=== PATIENT | female | born 1940 | race Caucasian/White ===

== ENCOUNTER 2017-04-14 10:45 | Inpatient (IN) ==
--- NOTE | 2017-04-14 12:38 | Diag Imaging Result Doc PS360 ---
CT HEAD W/O CONTRAST - 04/14/2017 INDICATION: TIA/Hypotension TECHNIQUE: A CT dose reduction protocol was used. COMPARISON: None FINDINGS: The ventricles and sulci are normal in size and contour. No intracranial mass or hemorrhage. There is some moderate multifocal cerebral white matter hypodensity, mainly the periventricular and scattered subcortical regions. This is compatible with chronic microvascular ischemia. The skull is intact. The sinuses, mastoids, and middle ears are clear. There is advanced vascular calcification of the carotid siphons bilaterally. IMPRESSION: Chronic ischemic changes of the brain. No acute abnormality. Electronically signed by Felipe Kasper 04/14/2017 12:36 PM
--- NOTE | 2017-04-14 12:50 | Diag Imaging Result Doc PS360 ---
CHEST-2 VIEWS - 04/14/2017 INDICATION: TIA/Hypotension TECHNIQUE: COMPARISON: 01/14/2016 FINDINGS: Stable sternotomy changes. Stable cardiomegaly. Pulmonary vascularity is normal. No focal infiltrates, pneumothorax, or pleural effusion. IMPRESSION: Mild cardiomegaly. No acute disease. Electronically signed by Felipe Kasper 04/14/2017 12:48 PM
[2017-04-14 13:53] LABS: EOS% 3.2 % (0.0-10.0); HEMOGLOBIN 10.2 g/dL (12.0-16.0); IMM GRAN# 0.05 X1000 (0.0-0.04); IMM GRAN% 0.5 % (0.0-0.5); LYMPH% 22.6 % (20.5-51.1); MANUAL DIFF NEEDED? NO; MCH 30.4 PG (27-31); MCHC 31.9 g/dL (33-37); MCV 95.5 FL (81-99); MONO# 0.72 X1000 (0.11-0.59); MONO% 7.7 % (1.7-9.3); MPV 11.9 FL (7.4-10.4); PLT 198 X1000 (130-400); RBC 3.35 XMIL (4.2-5.4)
[2017-04-14] MEDS: POTASSIUM CHLORIDE 10 MEQ in D5 NS 1,000 ML IV SCH (14:00)
[2017-04-14 14:11] LABS: ALBUMIN 3.7 g/dL (3.5-5.0); CALCIUM 9.1 mg/dL (8.8-10.2); TOTAL BILIRUBIN 0.25 mg/dL (0.20-1.00); TOTAL PROTEIN 6.2 g/dL (6.3-8.3)
--- NOTE | 2017-04-14 15:25 | EKG Report ---
Test Performed on : 04/14/2017 1:29:21 PM Test Reason : TIA/Hypotension Blood Pressure : / mmHG Vent. Rate : 069 BPM Atrial Rate : 069 BPM P-R Int : 178 ms QRS Dur : 096 ms QT Int : 424 ms P-R-T Axes : 050 -16 125 degrees QTc Int : 454 ms Normal sinus rhythm. T wave abnormality, consider lateral ischemia Abnormal ECG When compared with ECG of 16-JAN-2015 13:27, T wave inversion now evident in Lateral leads Confirmed by Narinder Cosme MD ([id number]) on 04/15/2017 8:23:35 PM
[2017-04-14] MEDS ORDERED: ZOFRAN PO PRN (17:38)
[2017-04-14] MEDS ORDERED: CATAPRES PO PRN (17:38)
[2017-04-14] MEDS ORDERED: TYLENOL PO PRN (17:38)
--- NOTE | 2017-04-14 18:05 | HISTORY AND PHYSICAL ---
HISTORY OF PRESENT ILLNESS: Ms. Pate who is a 77-year-old white female had a cataract surgery performed on the left eye a week ago the right eye 3 days ago. She had some pain in the eye and some slurring of speech yesterday and she came to the emergency room from where she was sent home because she wanted to go home and her physical exam was unremarkable. This morning she went to the applications developer who found that she was hypotensive and she was somewhat weak and he suggested that she sees the primary care physician and he saw her, she could not even get out of the car and she had some weakness in the right arm and we decided to put her in the hospital. Other details of personal past and family history reveal longstanding history of hypertension as well as renal failure. She had coronary artery disease and 4 vessel bypass surgery performed at [facility] in [place]. She also had hysterectomy and cataract surgery as mentioned. She does peritoneal dialysis at home at least 2 times a week. She is under acute care of Dr. Palencia for her renal problems. PERSONAL PAST AND FAMILY HISTORY: She does not smoke. Does not drink now. ALLERGIES: She is allergic to hydrocodone now but had bitartrate. MEDICATIONS: List includes allopurinol 100 mg daily, aspirin 81 mg daily, benzonatate, 30 mg, clonidine 0.1 mg every 6 hours, vitamin B complex, Renvela 800 mg t.i.d., Zofran q.6 hours p.r.n., omeprazole 20 mg daily, metoprolol succinate ER 50 mg once daily, metoclopramide 5 mg t.i.d., fluticasone or Advair 100-50 one puff b.i.d., Nexium 40 mg daily. REVIEW OF SYSTEMS: Other than generalized weakness, weakness in the right arm and slight stuttering of speech is noncontributory. PHYSICAL EXAMINATION: VITAL SIGNS: Reveal that temperature normal, pulse 71 per minute, respiratory rate 20 per minute, blood pressure 157/67. HEENT: Head normocephalic. Pupils PERRLA. Fundus examination could not be done. The patient recently had bilateral cataract surgery. Neck supple. JVP normal. ENT examination unremarkable. There is no evidence of lymphadenopathy, thyroid enlargement, pedal edema, calf tenderness, anemia, cyanosis or clubbing. Pedal pulses well felt. BREASTS: Exam not done. CHEST: Reveals midline scar from the bypass surgery. LUNGS: Clear on auscultation. PMI in the normal position. HEART: Sounds normal. No murmur, gallop or rub noted. ABDOMEN: Nondistended. Hernial orifices normal, reveals the scars for peritoneal dialysis and hysterectomy. No guarding, rigidity, free fluid masses, organomegaly. Bowel sounds normal. RECTAL: Deferred. ROUND UP RING HAND: Higher functions normal. Cranial nerves normal. 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 Deep tendon reflexes are normal. Plantars downgoing. Skull and spine examination normal for age. No cerebellar signs or signs of meningeal irritation. Locomotor exam, skin exam unremarkable except for presence of mild dehydration. CLINICAL IMPRESSION: 1. Hypotension. 2. Dehydration. 3. Patient had transient ischemic attack. 4. Renal failure. 5. Coronary artery disease. 6. She has history of gout also in the past. We will send continue to watch her closely. Do the neuro checks. Get the CT scan, carotid flow studies, possibly echocardiogram tomorrow. cc: Radu Whitehead MD
[2017-04-14] MEDS: ADVAIR 100/50 DISKUS INH SCH (19:32)
[2017-04-14] MEDS: VYTORIN 10/20 MG PO SCH (21:14)
[2017-04-15] MEDS: POTASSIUM CHLORIDE 10 MEQ in D5 NS 1,000 ML IV SCH ×2 (01:25→15:09)
[2017-04-15] MEDS: REGLAN PO SCH ×3 (06:05→16:15)
[2017-04-15 07:15] LABS: CALCIUM 8.7 mg/dL (8.8-10.2); POTASSIUM 4.7 mmol/L (3.5-5.1)
[2017-04-15] MEDS: ADVAIR 100/50 DISKUS INH SCH ×2 (09:28→19:42)
--- NOTE | 2017-04-15 09:34 | PROGRESS NOTE ---
DATE: 04/15/2017 SUBJECTIVE: Ms. Pate is feeling better this morning. OBJECTIVE: Vital Signs: Vital signs are stable. Blood pressure is down. She does not have any weakness. Her lab work is almost unchanged. She had peritoneal dialysis. She has some right internal carotid disease and right subclavian disease. Dr. Anthony is consulted. We will go further after his suggestions and she had echocardiogram done today. We will continue to watch her closely. cc: Radu Whitehead MD
[2017-04-15] MEDS: ASPIRIN PO SCH (09:35)
[2017-04-15] MEDS: ZYLOPRIM PO SCH (09:35)
[2017-04-15] MEDS: SENSIPAR PO SCH (09:35)
[2017-04-15] MEDS: RENAGEL PO SCH ×3 (09:35→16:15)
[2017-04-15] MEDS: TOPROL XL PO SCH (09:35)
[2017-04-15] MEDS: NEXIUM PO SCH (09:35)
[2017-04-15] MEDS: VICON-C PO SCH (09:36)
[2017-04-15] MEDS ORDERED: EPOGEN SUBQ ONE (10:45)
--- NOTE | 2017-04-15 11:17 | Carotid Study ---
DATE: 04/14/2017 PROCEDURE: Bilateral duplex and color flow imaging of the carotid arteries was performed using the [employer] E9 ultrasound system with a 9L-D transducer. REFERRING PHYSICIAN: Radu Whitehead MD. INTERPRETING PHYSICIAN: Troy Newsome MD. TECH: [place]. INDICATIONS: TIA. OBSERVED DATA RIGHT LEFT Brachial Blood Pressure Carotid Pulse Bruits: Carotid/Sub DIAGRAM OF ULTRASOUND IMAGING R L RIGHT INT EXT INT EXT LEFT Osorio (cm/s) Osorio (cm/s) Subclavian 99/0 Subclavian 42/0 CCA Proximal 68/23 CCA Proximal 59/18 CCA Distal 63/25 CCA Distal 47/11 Bulb 63/22 Bulb 48/15 ICA Proximal 327/119 ICA Proximal 63/23 ICA Mid 187/68 ICA Mid 67/20 ICA Distal 152/53 ICA Distal 38/15 ECA 556/146 ECA 76/7 Vertebral 63/25 A Vertebral 26/19 A ICA/CCA Ratio 4.84 ICA/CCA Ratio 1.13 % Stenosis 80-99 % Stenosis 0-39 FINDINGS: There appears to be critical stenosis on the right side at the level of the carotid bulb. There also appears to be abnormal flow in the left subclavian and vertebral artery on the left side, but by strict velocity criteria the left side is normal to mild. INTERPRETATION: Critical stenosis on the right carotid system with abnormal flow noted in the left subclavian and the left vertebral artery but a normal to mild stenosis on the left, although this may be limited by the abnormal flow in the subclavian. Given this, I would recommend a CT angiography to better delineate this pathology. Per avionics systems technician's note, this was noted to Dr. Whitehead at 5 p.m. cc: MD Radu Daniel MD
--- NOTE | 2017-04-15 15:48 | CONSULTATION ---
DATE OF CONSULTATION: 04/15/2017 NEPHROLOGY CONSULTATION: REASON FOR CONSULTATION: Management of renal failure. HISTORY OF PRESENT ILLNESS: Ms. Pate is a 77-year-old white female with obesity , diabetes, hypertension, coronary artery disease. She has end-stage kidney disease and performs peritoneal dialysis using nighttime cycler. She had cataract surgery consecutively over the last 2 weeks. She had her last surgery on Thursday 2 days ago. This was complicated by hypotension weakness and confusion. The family relates however that she has been weak, especially in the right arm, and somewhat confused for several days. Because her symptoms were not improving she was taken to Dr. Whitehead's office and then subsequently admitted to the hospital. This morning, she denies all symptoms and states that she is ready to go home. However her answers are somewhat slow and confused and conflicted. She has not had any problems with her dialysis. PAST MEDICAL HISTORY: As above. HOME MEDICATIONS: Include: Allopurinol, aspirin, benzonatate, clonidine, vitamin B, Renvela, Zofran, omeprazole, metoprolol, metoclopramide, fluticasone, Advair, Nexium. ALLERGIES: Hydrocodone. SOCIAL HISTORY: She lives alone but she has a very supportive family. Daughter is present. No alcohol or tobacco. FAMILY HISTORY: Noncontributory. REVIEW OF SYSTEMS: Otherwise noncontributory. PHYSICAL EXAMINATION: Vital Signs: Blood pressure 119/54, heart rate 72, respirations 14, afebrile. General: She is an obese, white female, sitting erect, in no distress. Skin: Warm and dry. Conjunctivae are pink. Pupils are equal. Neck: Neck veins are not distended. Oropharynx is clear and moist. Heart: Regular without gallops or murmurs. Lungs: Have equal breath sounds. No crackles or wheezes. Abdomen: Obese and soft. Bowel sounds present. No organomegaly. Extremities: No edema, clubbing or cyanosis. Neurologic Exam: Grossly nonfocal except for her and decreased attention span and intermittent confusion. IMPRESSION: 1. End-stage kidney disease. We will continue her routine peritoneal dialysis prescription. She is on PD currently. Electrolytes, acid-base and volume status are all within target. 2. Anemia. We will check iron stores, B12, and folate. Replace as needed. We will give 1 dose of erythropoietin. 3. Hypertension. Within target. 4. Confusion. Discussed directly with Dr. Whitehead. We will have Dr. Anthony review her vascular studies. cc: MD Radu Lucas MD MTDD
--- NOTE | 2017-04-15 18:22 | CONSULTATION ---
DATE OF CONSULTATION: 04/15/2017 CHIEF COMPLAINT: Right carotid stenosis. HISTORY: This is a 77-year-old lady admitted by Dr. Whitehead on the 04/14. She was admitted after being evaluated by her web knitter. Ms. Paet simply says she could not function. That was her words. She could not function. Her daughter states she has been having trouble saying things that she wants to say. Ms. Pate admits to that, knows what she wants to say, but she cannot say it necessarily. She denies any stroke symptoms. PAST MEDICAL HISTORY: Pertinent for chronic kidney disease, for which she dialyzes via her peritoneum. She has a history of coronary artery disease and has had coronary bypass at [facility] in the past. She denies any current chest pain. She has a history of gout in the past. MEDICATIONS AT HOME: Allopurinol 100 mg daily, aspirin 81 mg daily, clonidine 0.1 mg every 6 hours, vitamin B complex daily, Renvela 800 mg t.i.d., Zofran q.6 hours p.r.n., omeprazole 20 mg daily, metoprolol 50 mg daily, metoclopramide 5 mg t.i.d., fluticasone 100/50, 1 puff b.i.d., Nexium 40 mg daily. ALLERGIES: She has an allergy or intolerance to hydrocodone. FAMILY HISTORY: Noncontributory. SOCIAL HISTORY: She denies smoking. She denies alcohol use. She has an attentive family. REVIEW OF SYSTEMS: Pertinent for some generalized weakness, but no lateralizing weakness that she describes today. She has had the difficulty speaking. No chest pain. Denies any shortness of breath. PHYSICAL EXAMINATION: Vital Signs: Temperature is 99.1 degrees, heart rate 67, respiratory rate 14, blood pressure 150/54. There are bilateral radiating murmurs to the neck. Bilateral breath sounds. Heart: Regular rate and rhythm. A murmur is noted. Abdomen: Soft and nontender. Extremities: No peripheral edema. Neurologic: She has +5 over +5 strength in all 4 extremities. DIAGNOSTIC DATA: Chemistry shows a BUN 43, creatinine 9.2. Right carotid Doppler shows a very high-grade stenosis on her right side with irregular plaque. The proximal ICA velocity is 327/119 consistent with at least an 80% stenosis. The left side velocities are not high. There is some plaque present. There is antegrade vertebral flow. ASSESSMENT: Dysarthria. It really does not correlate with a right carotid stenosis. It might be helpful to get a CT angiogram of the neck to further evaluate her disease. I do think she is going to face the need for right carotid endarterectomy at some point in the near future. I have discussed that briefly with her. Thanks for the opportunity to see her. I would continue with antiplatelet therapy. cc: MD Radu Martin MD
--- NOTE | 2017-04-15 21:04 | ECHO REPORT ---
ORDER DATE: 04/15/2017 INTERPRETING PHYSICIAN: Dr. Ocampo REQUESTING PHYSICIAN: Dr. Whitehead CLINICAL INDICATIONS: A 77-year-old female with hypotension, dehydration. M-MODE MEASUREMENTS: Right ventricle: 2.8 cm. Left ventricle end diastole: 4.9 cm. Left ventricle end systole: 3.7 cm. Posterior wall: 1.3 cm. Interventricular septum: 1.3 cm. Left atrium: 4.7 cm. Aortic root: 3.3 cm. SUMMARY OF 2-DIMENSIONAL IMAGING: The left ventricular chamber appears to be significantly enlarged. The global ejection fraction appears to be preserved at 55%. There is wall motion abnormality in the posterior wall, basal and midportion of it. That may be consistent with the patient's history of coronary heart disease. The mitral annulus shows dense calcification. Color flow mapping of the mitral valve indicates a moderately severe degree of mitral regurgitation. Pulse wave Doppler of mitral inflow shows "normal" E/A ratio. Tissue Doppler of septal and lateral mitral annulus averages 4 cm per second. There is elevation of left atrial pressure based on the E/E prime ratio. The aortic valve is densely calcified, especially the posterior leaflet shows dense calcification. Color flow mapping indicates a moderate degree of aortic regurgitation. The pulmonic valve looks normal with a [id number] degree of regurgitation. The tricuspid valve shows a moderate degree of regurgitation with a pulmonary pressure estimated roughly at 54 mmHg. There is no pericardial effusion, masses or thrombus. Clinical correlation recommended. cc: MD Radu Lacy MD
[2017-04-15] MEDS: VYTORIN 10/20 MG PO SCH (21:56)
[2017-04-16 05:00] LABS: ALLEN TEST YES; BE -3.4 mmoll (-3.0-3.0); BLOOD TYPE ARTERIAL; DRAW SITE R RADIAL; METHB 0.2 % (0.0-1.5); O2(CT) 14.5 mL/dL (15.0-23.0); PCO2(98.6) 36 mmHg (35-45); PO2(98.6) 70 mmHg (60-100); SAMPLE BLOOD; SAO2 94.2 % (95.0-100.0); THB 10.9 g/dL (11.5-17.4); pH(98.6) 7.38 (7.35-7.45)
[2017-04-16 05:05] LABS: MODALITY ROOM AIR
[2017-04-16 08:14] LABS: IRON SATURATION 29 %; TIBC 196 ug/dL; TOTAL IRON 56 ug/dL (49-151); UNBOUND IRON 140 ug/dL (112-346)
[2017-04-16 08:23] LABS: FERRITIN 1328 ng/mL (13-150)
--- NOTE | 2017-04-16 08:27 | Diag Imaging Result Doc PS360 ---
EXAM: CHEST-1 VIEW HISTORY: SOB TECHNIQUE: Portable upright AP COMPARISON: 04/14/2017 FINDINGS: Sternal wires are present. The lungs are well expanded. The heart is not enlarged. The vessels are not distended. There are no infiltrates. No effusion identified. IMPRESSION: Negative exam. Electronically signed by Burke Colmenares 04/16/2017 8:25 AM
[2017-04-16] MEDS: ADVAIR 100/50 DISKUS INH SCH ×2 (08:42→20:12)
[2017-04-16] MEDS: RENAGEL PO SCH ×3 (09:32→16:01)
[2017-04-16] MEDS: VICON-C PO SCH (09:32)
[2017-04-16] MEDS: SENSIPAR PO SCH (09:32)
[2017-04-16] MEDS: ZYLOPRIM PO SCH (09:32)
[2017-04-16] MEDS: NEXIUM PO SCH (09:32)
[2017-04-16] MEDS: TOPROL XL PO SCH (09:33)
[2017-04-16] MEDS: ASPIRIN PO SCH (09:33)
[2017-04-16] MEDS: REGLAN PO SCH ×3 (09:33→16:01)
--- NOTE | 2017-04-16 09:53 | PROGRESS NOTE ---
DATE: 04/16/2017 Ms. Pate is doing better. She is talking more this morning. Last night, she was somewhat short of breath, and her ABGs were repeated. They looked normal. Bicarb was 22.2. CBC is unremarkable. She is getting the angiogram today on her carotids. She was seen by Dr. Anthony yesterday. We will re-evaluate her after we get the results. cc: Radu Whitehead MD
--- NOTE | 2017-04-16 10:03 | Diag Imaging Result Doc PS360 ---
CT ANGIOGRAM/NECK - 04/16/2017 INDICATION: TIA; right carotid stenosis TECHNIQUE: Axial CT images were obtained after administering intravenous contrast. Three-dimensional angiographic images were generated. A CT dose reduction protocol was used. COMPARISON: None FINDINGS: There are trace pleural effusions. There is probably interstitial pulmonary edema in the lung apices. There are sternotomy wires. There is heavy vascular disease of the aortic arch. No mass or adenopathy in the neck. There is heavy multilevel degenerative disc disease. No acute bony lesions. On the right side, there is severe stenosis with calcified plaque at the origin of the brachiocephalic artery by about 75%. The common carotid artery is tortuous but patent. There is extensive heavy calcified plaque throughout the carotid bulb and proximal internal carotid artery. There is long segment critical stenosis of about 90% narrowing. The remainder of the internal carotid artery is patent. At the cavernous and supraclinoid portion, there is significant vascular calcification, of the internal carotid artery. There is moderate about 50% stenosis. On the left side, the common carotid artery is grossly patent. There is extremely heavy vascular calcification of the carotid bulb with severe stenosis of about 75%. The remainder of the internal carotid artery is grossly patent. There is heavy stenosis throughout the cavernous and supraclinoid portions of the internal carotid artery. There is about 60% stenosis here. There is essentially no visible flow throughout the right vertebral artery, which is probably reconstituted by collaterals at about the level of the hyoid bone. Cephalad to this, there is a normal caliber vertebral artery. The left vertebral artery is patent throughout its course with good caliber. The basilar artery is patent. IMPRESSION: 1. Extensive vascular disease of both carotid artery systems, right greater than left. This involves the entire system from the brachiocephalic artery origin all the way to the intracranial vessels. By far the worst stenosis is the right carotid bulb. 2. No visible flow throughout the majority of the right proximal vertebral artery, which appears to be reconstituted by collaterals. The left vertebral artery is patent. Electronically signed by Felipe Kasper 04/16/2017 10:01 AM
--- NOTE | 2017-04-16 14:40 | PROGRESS NOTE ---
DATE: 04/16/2017 SUBJECTIVE: Patient is sitting up in bed. She states that she is having worsening shortness of breath this afternoon. OBJECTIVE: Vital Signs: Temperature 97.7 degrees, pulse 80, respiratory rate 20, blood pressure 163/63. Intake 1.2 L. Output 3 L. Her PD was not measured. O2 saturation 97 % on 2 L nasal cannula. General: On exam, this is an elderly female sitting up in bed. She is awake, alert. She has no acute distress. She does become somewhat short of breath during conversation. HEENT: Normocephalic, atraumatic. Oral mucosa is moist. FRITZ. Conjunctivae pink. Neck: Supple. There is no JVD. Cardiovascular: Regular rate and rhythm. No murmur or gallop. Pulmonary: She has equal excursion. There is no wheeze or rhonchi noted, but she is obviously breathless during conversation. Abdomen: Soft, with positive bowel sounds. She has a PD catheter to the right lower quadrant with dressing that is clean, dry and intact. Integumentary: Skin is warm and dry without rash or lesion. Extremities: No clubbing, cyanosis or edema. LABORATORY DATA: No labs today. ASSESSMENT AND PLAN: 1. End-stage renal disease management. Today she is a routine peritoneal dialysis patient. We will continue her on her current treatment. 2.5% dianeal tonight. 2. Hypertension, controlled. 3. Effusion/transient ischemic attack followed by primary. 4. Shortness of breath. We will go ahead and order a chest x-ray this afternoon. Dictated by MARINA Shepard for Stephan Palencia MD Patient seen, data reviewed, discussed with Elisa Upton on 04/16/17. I agree with the above assessment and plan of care. cc: MD Radu Lucas MD MTDD
--- NOTE | 2017-04-16 14:52 | Diag Imaging Result Doc PS360 ---
CHEST-2 VIEWS - 04/16/2017 1445 INDICATION: worsening dyspnea TECHNIQUE: COMPARISON: 0815 FINDINGS: There are increased interstitial markings throughout the lungs and curly B lines that are visible on this improved exam. This suggests pulmonary edema. Stable cardiomegaly. Stable sternotomy changes. No pneumothorax or pleural effusion. IMPRESSION: Cardiomegaly and interstitial pulmonary edema. Electronically signed by Felipe Kasper 04/16/2017 2:50 PM
[2017-04-16] MEDS: FOLIC ACID PO SCH (16:01)
[2017-04-16] MEDS: VYTORIN 10/20 MG PO SCH (22:04)
[2017-04-16] MEDS: REMERON PO SCH (22:04)
[2017-04-17] MEDS: REGLAN PO SCH ×3 (06:17→18:44)
[2017-04-17] MEDS ORDERED: EPOGEN SUBQ ONE (08:43)
--- NOTE | 2017-04-17 08:51 | Diag Imaging Result Doc PS360 ---
EXAM: CHEST-1 VIEW HISTORY: reassess pulmonary edema TECHNIQUE: Single AP view of the chest performed portably. COMPARISON: 04/16/2017 FINDINGS: This evaluation is limited by large body habitus and portable technique. There is cardiomegaly with median sternotomy wires. Interstitial edema may be slightly worse on the right. No focal consolidation or effusions are appreciated. There is stable cardiomegaly. IMPRESSION: Limited portable evaluation. There may be mild increase in interstitial edema right lung. No focal consolidation. Electronically signed by Sylvia Candelario 04/17/2017 8:49 AM
--- NOTE | 2017-04-17 08:57 | PROGRESS NOTE ---
DATE: 04/17/2017 SUBJECTIVE: She has been sleeping for 13 hours according to the son. She has had intermittent arousal. She again states that she is ready to go home. Denies shortness of breath, nausea, vomiting. She still has not eaten. OBJECTIVE: Vital Signs: Blood pressure 177/68, heart rate 80, respirations 16. Afebrile. General: On physical exam, no acute distress. Skin: Warm and dry. Eyes: Conjunctivae are pink. Neck: Neck veins are not appreciated. Heart: Regular. Lungs: Equal and clear. Abdomen: Obese and soft. Bowel sounds present. Extremities: Have no edema, clubbing, or cyanosis. LABORATORY DATA: None today. IMPRESSION: 1. End-stage kidney disease. We will continue her routine dialysis prescription. 2. Altered mental status. Perhaps a little better today. Continue current treatment. 3. Mild pulmonary edema. We increased her Dianeal concentration last night. Will repeat chest x- ray this morning. 4. Anemia. She is managed with Darbepoetin as an outpatient. We will give a single dose of subcu Epogen today. Her iron stores did not warrant IV iron. 5. Appetite loss. I added mirtazapine to her regimen yesterday. cc: MD Radu Lucas MD
[2017-04-17] MEDS: RENAGEL PO SCH ×3 (09:22→18:44)
[2017-04-17] MEDS: NEXIUM PO SCH (09:22)
[2017-04-17] MEDS: TOPROL XL PO SCH (09:22)
[2017-04-17] MEDS: ZYLOPRIM PO SCH (09:22)
[2017-04-17] MEDS: ASPIRIN PO SCH (09:22)
[2017-04-17] MEDS: FOLIC ACID PO SCH (09:22)
[2017-04-17] MEDS: SENSIPAR PO SCH (09:23)
[2017-04-17] MEDS: VICON-C PO SCH (09:23)
[2017-04-17] MEDS: ADVAIR 100/50 DISKUS INH SCH ×2 (10:51→20:17)
--- NOTE | 2017-04-17 11:01 | PROGRESS NOTE ---
DATE: 04/17/2017 Ms. Pate is doing better. She is somewhat drowsier. Her arterial blood gases done yesterday revealed a pO2 of 70. She had a chest x-ray done earlier this morning which revealed, there was a mild increase in the interstitial edema in the right lung. Otherwise, her general condition is stable. Her total iron was 50. TIBC was 196. She was seen by Dr. Palencia today. He does not think she qualifies for parenteral iron therapy for the time being. She is getting physical therapy. We are going to add Plavix on the current management, as she had significant carotid disease. -9 cc: Radu Whitehead MD
[2017-04-17] MEDS: REMERON PO SCH (21:22)
[2017-04-17] MEDS: VYTORIN 10/20 MG PO SCH (21:22)
[2017-04-18] MEDS: REGLAN PO SCH ×3 (06:24→16:08)
[2017-04-18 06:29] LABS: HEMATOCRIT 32.8 % (37.0-47.0); HEMOGLOBIN 10.3 g/dL (12.0-16.0); MCH 29.9 PG (27-31); MCHC 31.4 g/dL (33-37); MCV 95.1 FL (81-99); MPV 11.6 FL (7.4-10.4); RBC 3.45 XMIL (4.2-5.4)
[2017-04-18 06:49] LABS: ALBUMIN 3.3 g/dL (3.5-5.0); POTASSIUM 4.3 mmol/L (3.5-5.1)
[2017-04-18] MEDS ORDERED: ROCALTROL PO SCH (09:00)
[2017-04-18] MEDS: FOLIC ACID PO SCH (09:11)
[2017-04-18] MEDS: VICON-C PO SCH (09:11)
[2017-04-18] MEDS: ASPIRIN PO SCH (09:11)
[2017-04-18] MEDS: TOPROL XL PO SCH (09:11)
[2017-04-18] MEDS: SENSIPAR PO SCH (09:11)
[2017-04-18] MEDS: NEXIUM PO SCH (09:11)
[2017-04-18] MEDS: RENAGEL PO SCH ×3 (09:11→16:08)
[2017-04-18] MEDS: ZYLOPRIM PO SCH (09:11)
[2017-04-18] MEDS: ADVAIR 100/50 DISKUS INH SCH ×2 (11:22→20:58)
--- NOTE | 2017-04-18 13:29 | PROGRESS NOTE ---
DATE: 04/18/2017 SUBJECTIVE: Patient continues to sleep a lot and not eating well. There is documented that she ate 100% of her meal this morning but by the family reports she just picked at her food. Apparently they ate the rest of the meal. OBJECTIVE: Vital signs: Afebrile, pulse 80, respirations 16, blood pressure 118/63, O2 saturation on 2 L 97%. Cardiovascular: RRR. Lungs: Crackles at the right lung base are fairly prominent. Abdomen: Soft. Active bowel sounds. Nontender. Extremities: No calf tenderness, cords or edema. Skin: Minimal puffiness of the face. DIAGNOSTIC DATA: Chest x-rays revealed increase in the interstitial edema right lung field but no focal consolidation yesterday. Sodium 138, potassium 4.3, chloride 98, CO2 24, BUN 32, creatinine 8.7, calcium 9.0, phosphorus 5.5, folate 5.9 two days ago, albumin 3.3. White count 12.1, hemoglobin 10.3, hematocrit 32.8, platelets 214,000. ASSESSMENT: 1. Right lung crackles, pulmonary edema versus atelectasis versus early pneumonia. 2. Anorexia. 3. Generalized weakness. 4. Hypersomnia. 5. Peritoneal dialysis/end-stage renal disease. 6. Carotid stenosis severe, right greater than left. 7. Hypertension. 8. Hypercholesterolemia. 9. Folic acid deficiency. PLAN: We will initiate incentive spirometry. Continue Remeron to try to spur appetite as per Dr. Palencia. Continue physical therapy. Monitor lab data and chest x-ray closely, continue oral folic acid repletion. Family desires inpatient ongoing treatment for her difficulties. cc: MD Radu Busch MD
--- NOTE | 2017-04-18 13:38 | PROGRESS NOTE ---
DATE: 04/18/2017 SUBJECTIVE: She is sitting up in bed, picking at her sandwich. She is more alert today. She has been able to walk with therapy. No dizziness, weakness. She does still have some shortness of breath which the family has noted on occasion. OBJECTIVE: Vital Signs: Blood pressure 152/64, heart rate 80, respirations 20, afebrile. General: She is in no acute distress. Skin: Warm and dry. HEENT: Conjunctivae are pink. Pupils are equal. Neck: Neck veins are not visible. Trachea is midline. Heart: Regular without gallops. Lungs: Have equal breath sounds. No crackles or wheezes. Abdomen: Soft, nontender, obese. Bowel sounds present. Extremities: Have no edema, clubbing, or cyanosis. LABORATORY DATA: Sodium 138, potassium 4.3, chloride 98, bicarbonate 24, BUN 32, creatinine 8.7, albumin 3.3. Hemoglobin 10.3. IMPRESSIONS: 1. Acute of altered mental status. Improved. She has been able to ambulate and she is eating a little better. Her speech is more appropriate. Continue to progress in terms of nutrition ambulation. I instructed her to sit up in the chair most of the day. 2. End-stage kidney disease. Continue her routine peritoneal dialysis. 3. Mild pulmonary edema. Continue to use green solution. We may need to adjust her home prescription. 4. Anemia. Hemoglobin is stable and within target. 5. Hypertension. In target. cc: MD Radu Lucas MD
[2017-04-18] MEDS: ALBUTEROL NEB INH SCH ×3 (17:55→21:56)
[2017-04-18] MEDS: VYTORIN 10/20 MG PO SCH (21:00)
[2017-04-18] MEDS: REMERON PO SCH (21:00)
[2017-04-19] MEDS: REGLAN PO SCH ×3 (06:43→16:26)
[2017-04-19] MEDS: ALBUTEROL NEB INH SCH ×4 (06:46→20:15)
[2017-04-19 07:21] LABS: BASO% 1.2 % (0.0-0.8); EOS# 0.67 X1000 (0.0-0.7); EOS% 4.9 % (0.0-10.0); HEMATOCRIT 34.5 % (37.0-47.0); HEMOGLOBIN 10.8 g/dL (12.0-16.0); IMM GRAN# 0.15 X1000 (0.0-0.04); IMM GRAN% 1.1 % (0.0-0.5); LYMPH# 2.58 X1000 (1.2-3.4); LYMPH% 18.7 % (20.5-51.1); MANUAL DIFF NEEDED? YES; MCHC 31.3 g/dL (33-37); MCV 95.8 FL (81-99); MONO# 1.11 X1000 (0.11-0.59); MPV 11.7 FL (7.4-10.4); NEUT% 66.1 % (42.2-75.2); PLT 242 X1000 (130-400)
[2017-04-19 07:31] LABS: CALCIUM 9.3 mg/dL (8.8-10.2); POTASSIUM 4.6 mmol/L (3.5-5.1)
[2017-04-19] MEDS: ADVAIR 100/50 DISKUS INH SCH ×2 (07:32→23:00)
--- NOTE | 2017-04-19 07:47 | Diag Imaging Result Doc PS360 ---
EXAM: CHEST-PORTABLE INDICATION: rt lung crackles TECHNIQUE: One view COMPARISON: 04/17/2017 FINDINGS: Lung volumes remain low. The mild increased opacity at the right lung base seen previously appears to have improved. This could be due to differences in positioning. The patient is rotated toward the right. No new consolidation is identified cardiac silhouette is stable IMPRESSION: Interval improvement of opacity at the right lung base. Electronically signed by Matthew Salvador 04/19/2017 7:45 AM
[2017-04-19 07:53] LABS: BANDS 2 % (0-1); EOS 4 % (1-10); LYMPHS 12 % (21-51); MONO 4 % (1-9)
[2017-04-19 07:54] LABS: HYPOCHROM 1+; LARGE PLATELETS 1+; POLYCHROM 1+
[2017-04-19] MEDS: RENAGEL PO SCH ×3 (09:04→16:26)
[2017-04-19] MEDS: VICON-C PO SCH (09:04)
[2017-04-19] MEDS: ZYLOPRIM PO SCH (09:04)
[2017-04-19] MEDS: NEXIUM PO SCH (09:04)
[2017-04-19] MEDS: TOPROL XL PO SCH (09:04)
[2017-04-19] MEDS: ASPIRIN PO SCH (09:04)
[2017-04-19] MEDS: SENSIPAR PO SCH (09:04)
[2017-04-19] MEDS: FOLIC ACID PO SCH (09:04)
--- NOTE | 2017-04-19 11:47 | PROGRESS NOTE ---
DATE: 04/19/2017 SUBJECTIVE: Patient improving slightly. She ate a quarter to half of her breakfast which is a little better than she was mid week. She is participating in physical therapy and ambulating some. Still feels awfully weak. OBJECTIVE: Vital signs: Afebrile, pulse 85, respirations 16, blood pressure 126/63, O2 saturation on 2 L 97%. CV: RRR. Lungs: Improved crackles right lung field today compared to yesterday. Extremities: No calf tenderness, cords, or edema. Abdomen: Soft. Active bowel sounds. Nontender, nondistended. DIAGNOSTIC STUDIES: Chest x-ray reveals improvement right lower lobe infiltrate or opacity which may be atelectasis. White count continues to rise at 13.8, hemoglobin 10.8, platelets 242,000, neutrophils 66%, lymphocytes 18, monocytes 8, eosinophils 4.9. Sodium 140, potassium 4.6, chloride 97, CO2 25, BUN 36, creatinine 8.4, calcium 8.3. ASSESSMENT: 1. Right lung crackles with possible atelectasis versus pneumonia. 2. Anorexia. 3. Generalized weakness. 4. Leukocytosis, increasing. 5. Hypersomnia, improving. 6. Peritoneal dialysis/end-stage renal disease per Dr. Palencia. 7. Severe carotid stenosis, right greater than left. 8. Hypertension. 9. Hypercholesterolemia. 10. Folic acid deficiency. PLAN: Continue incentive spirometry, physical therapy. Get her up in chair as tolerated. Continue to try to improve her oral nutrition. Continue Remeron. Continue aspirin therapy for carotids and blood pressure control vigorously with metoprolol. cc: MD Radu Busch MD
[2017-04-19] MEDS: VYTORIN 10/20 MG PO SCH (19:56)
[2017-04-19] MEDS: REMERON PO SCH (19:56)
[2017-04-20] MEDS: VYTORIN 10/20 MG PO SCH (01:45)
[2017-04-20] MEDS: REMERON PO SCH (01:45)
[2017-04-20] MEDS: ALBUTEROL NEB INH SCH ×2 (03:51→08:28)
[2017-04-20] MEDS: ADVAIR 100/50 DISKUS INH SCH ×2 (08:28→08:40)
[2017-04-20] MEDS: REGLAN PO SCH (09:02)
[2017-04-20] MEDS: VICON-C PO SCH (09:02)
[2017-04-20] MEDS: SENSIPAR PO SCH (09:03)
[2017-04-20] MEDS: ASPIRIN PO SCH (09:03)
[2017-04-20] MEDS: RENAGEL PO SCH (09:03)
[2017-04-20] MEDS: FOLIC ACID PO SCH (09:03)
[2017-04-20] MEDS: ZYLOPRIM PO SCH (09:03)
[2017-04-20] MEDS: TOPROL XL PO SCH (09:03)
[2017-04-20 09:04] VITALS: BP 114/86
[2017-04-20] MEDS: NEXIUM PO SCH (09:04)
--- NOTE | 2017-04-20 09:55 | PROGRESS NOTE ---
DATE: 04/20/2017 Ms. Pate is feeling better. Lab data shows improvement. Chest x-ray shows improvement. Her lungs sound much clearer. We are going to discharge her today. I am going to put her on Levaquin as she has a persistent cough at 500 mg daily for 7 days. We will also start her on clopidogrel on account of extensive vascular disease in the carotid system and her already having a TIA. She has a consult with Dr. Anthony who will operate on her later on. She gets peritoneal dialysis under the direction of Dr. Palencia. cc: Radu Whitehead MD
--- NOTE | 2017-04-20 12:46 | PROGRESS NOTE ---
DATE: 04/20/2017 TIME SEEN: 0740. SUBJECTIVE: Ms. Pate is resting quietly in bed. She has no complaints. She has disconnected herself from her cycler. She denies chest pain or increased work of breathing. OBJECTIVE: Vital signs: Her most recent vital signs, her last temperature 98.3 degrees, blood pressure 142/92, last heart rate 84, respirations are 16. She is on 2 L nasal cannula. Last recorded saturation is 93%. She has had 940 in, 1610 out. Labs: Her most recent labs, her sodium 140, potassium 4.6, chloride 97, CO2 25, BUN 36, creatinine 8.4. Her glucose is 110. Her anion gap 18, calcium 9.3. Previous white count 13.8, hemoglobin 10.8, hematocrit 34.5, platelet count is 242,000. PHYSICAL EXAMINATION: General: This is a 77-year-old white female. She is currently resting in bed. She is in no acute distress. Skin: Warm and dry. HEENT: Normocephalic , atraumatic. Conjunctivae pale. She has FRITZ. Mucous membranes are moist. Neck: Supple. Trachea midline. No JVD. Cardiovascular: She is regular rate and rhythm. She is without murmur or gallop. Lungs: Clear to auscultation anteriorly. Equal excursion. On room air. Abdomen: Large, round, soft, nontender. Positive bowel sounds. PD catheter remains intact to the right lower quadrant. Catheter is currently clamped. She is off her cycler. No redness or drainage noted to the exit site. Genitourinary: Not inspected. Minimal void with dialysis assist. Extremities: She has trace pretibial edema. No clubbing or cyanosis. ASSESSMENT AND PLAN: 1. If patient remains in the hospital she is scheduled for her routine dialysis treatment tonight per the cycler. 2. Electrolytes and acid-base balance. These remain stable. 3. Anemia. This remains low but stable. 4. Altered mental status with possible hypotension. This has improved. I would like to thank you for allowing us to follow with this patient. Dictated by MARINA Villalobos for Stephan Palencia MD Patient seen, data reviewed, discussed with Juan A Askew on 04/20/17. I agree with the above assessment and plan of care. cc: MARINA Villalobos MD Amit V. Vora, MD [facility]
--- NOTE | 2017-04-21 04:59 | DISCHARGE SUMMARY ---
ADMISSION DATE: 04/14/2017 DISCHARGE DATE: 04/20/2017 HISTORY OF PRESENT ILLNESS: Ms. Pate is a 77-year-old, white female with a known case of hypertension. Had sudden onset of stuttering speech as well as weakness on the right side. DIAGNOSTIC DATA: A CT scan of the brain revealed chronic ischemic changes. Carotid Doppler studies had revealed critical stenosis of the right carotid system with abnormal flow noted in the left subclavian and left vertebral artery. This was read by Dr. Troy Newsome. Carotid neck CTA was done. It revealed extensive vascular disease of both carotid artery systems, right greater than the left. This involved the entire system from the brachiocephalic origin into the intracranial vessels. By far, the worst stenosis was in the right carotid bulb. No visible flow throughout the majority of the right proximal vertebral artery was also noted. Final chest x-ray done on 04/19/2017 revealed interval improvement of the opacity in the right lung base. Other laboratory data revealed CBC that was unremarkable except for anemia. Hemoglobin was 10.8. Arterial blood gases revealed pH 7.38, pCO2 was 36, PO2 was 70. Chemistry profile was normal except for the BUN and creatinine which were 43 and 9.2 respectively, and varied a little bit with the peritoneal dialysis. Total iron was 56, iron binding capacity was 196, percent of saturation was 29, ferritin was 1328. COURSE IN THE HOSPITAL: She was given peritoneal dialysis during her stay. She was seen by Dr. Palencia as well as later on, Dr. Anthony who has elected to do the surgery later on. Besides aspirin, she was also placed on clopidogrel. She continued to do good. We will discharge her. FINAL DIAGNOSES: 1. Transient ischemic attack. 2. Severe carotid artery disease. 3. Hypertension. 4. Renal failure. Patient on peritoneal dialysis. cc: Radu Whitehead MD
== END 2017-04-20 10:58 | disposition home or self-care (01) ==
LOC: DIRADM 10:45 → 3N 11:15
PROVIDERS: ADMIT Internal Medicine; ATTEND Internal Medicine

== ENCOUNTER 2017-04-21 16:07 | Inpatient (IN) ==
[2017-04-21] MEDS ORDERED: ZOFRAN PO PRN (17:41)
--- NOTE | 2017-04-21 18:28 | Diag Imaging Result Doc PS360 ---
CT HEAD W/O CONTRAST - 04/21/2017 INDICATION: poss CVA TECHNIQUE: A CT dose reduction protocol was used. COMPARISON: 04/14/2017 FINDINGS: There is stable moderate periventricular white matter chronic microvascular disease. The ventricles and sulci are normal in size and contour. No intracranial mass or hemorrhage. The skull is intact. The sinuses, mastoids, and middle ears are clear. IMPRESSION: No acute disease or change from prior. Electronically signed by Felipe Kasper 04/21/2017 6:26 PM
--- NOTE | 2017-04-21 18:49 | PROGRESS NOTE ---
DATE: 04/21/2017 SUBJECTIVE: At present she is in the emergency room. She is being admitted tonight for a possible stroke. She has weakness in the right upper and lower extremity, and definitely some speech disturbance from possibly some expressive aphasia. She has extensive carotid disease more on the right side. She severe hypertension, renal failure on peritoneal dialysis. PLAN: We will order a CT scan of the brain tonight and also consult Dr. Momin as well as Dr. Palencia for Neurology and Nephrology consults. cc: Radu Whitehead MD
--- NOTE | 2017-04-21 19:22 | Diag Imaging Result Doc PS360 ---
CHEST-2 VIEWS - 04/21/2017 INDICATION: SOB TECHNIQUE: COMPARISON: 04/19/2017 FINDINGS: Stable severely low lung volumes. Stable sternotomy wires. Stable cardiomegaly. No focal infiltrates, pneumothorax, or pleural effusion. IMPRESSION: Nonspecific findings. Electronically signed by Felipe Kasper 04/21/2017 7:20 PM
[2017-04-21] MEDS: NEURONTIN PO SCH (22:35)
[2017-04-21] MEDS: D5 1/2 NS + KCL 10 MEQ 1,000 ML IV SCH (22:35)
[2017-04-21] MEDS ORDERED: TYLENOL PO ONE (23:40)
--- NOTE | 2017-04-22 06:26 | EKG Report ---
Test Performed on : 04/22/2017 05:32:13 AM Test Reason : CP Blood Pressure : / mmHG Vent. Rate : 083 BPM Atrial Rate : 083 BPM P-R Int : 164 ms QRS Dur : 094 ms QT Int : 406 ms P-R-T Axes : 035 -14 130 degrees QTc Int : 477 ms Normal sinus rhythm. ST \T\ T wave abnormality, consider lateral ischemia Prolonged QT Abnormal ECG When compared with ECG of 14-APR-2017 13:29, No significant change was found Confirmed by Sandra LORD, Josias Michael ([id number]) on 04/22/2017 10:05:55 AM
[2017-04-22] MEDS: SYNTHROID PO SCH ×2 (06:27→08:25)
[2017-04-22 07:26] LABS: INR 1.12; PROTIME 11.9 Seconds (9.2-11.7)
[2017-04-22 07:29] LABS: ALBUMIN 3.4 g/dL (3.5-5.0); CALCIUM 9.9 mg/dL (8.8-10.2); MAGNESIUM 2.1 mg/dL (1.5-2.7); POTASSIUM 4.4 mmol/L (3.5-5.1); TOTAL BILIRUBIN 0.24 mg/dL (0.20-1.00)
[2017-04-22 07:32] LABS: BASO% 0.8 % (0.0-0.8); EOS# 0.62 X1000 (0.0-0.7); EOS% 4.8 % (0.0-10.0); HEMATOCRIT 35.2 % (37.0-47.0); HEMOGLOBIN 10.9 g/dL (12.0-16.0); LYMPH# 3.24 X1000 (1.2-3.4); LYMPH% 25.2 % (20.5-51.1); MCH 30.6 PG (27-31); MCV 98.9 FL (81-99); MONO# 1.26 X1000 (0.11-0.59); MONO% 9.8 % (1.7-9.3); MPV 10.8 FL (7.4-10.4); NEUT% 59.4 % (42.2-75.2); PLT 252 X1000 (130-400); RBC 3.56 XMIL (4.2-5.4)
[2017-04-22] MEDS: ASPIRIN PO SCH (08:19)
[2017-04-22] MEDS: LEVAQUIN PO SCH (08:19)
[2017-04-22] MEDS: MAG-OX PO SCH (08:20)
[2017-04-22] MEDS: NEPHRO-VITE PO SCH (08:20)
[2017-04-22] MEDS: PLAVIX PO SCH (08:20)
[2017-04-22] MEDS: SENSIPAR PO SCH (08:21)
[2017-04-22] MEDS: ZYLOPRIM PO SCH (08:23)
[2017-04-22 08:47] LABS: MANUAL DIFF NEEDED? NO
[2017-04-22 09:30] LABS: DIFF NEEDED? YES; MONOS 80 %; POLYS 20 %; WBC BF 41 /cumm
--- NOTE | 2017-04-22 09:47 | HISTORY AND PHYSICAL ---
HISTORY OF PRESENT ILLNESS: Ms. Pate is a 77-year-old, white female was admitted with sudden onset of again difficulty in talking and weakness in the right upper extremity as well as right lower extremity also, inability to walk. She was discharged the day before. She presented from Dr. Palencia's office, went to her house for training for her peritoneal dialysis. At that time, her blood pressure shot up at one point and within about 15 minutes, it came down significantly. She had some slurred speech at that time and weakness in the right side with some facial deviation. We knew that she had a TIA or stroke. Hence, we decided to admit her to the hospital back again. This was a new 1 because she had recovered from the previous TIA. She has significant bilateral carotid disease, more extensive in the right internal carotid artery. She has a known case of hypertension, renal failure on peritoneal dialysis under active care with Dr. Palencia. She was discharged home with aspirin as well as Plavix. She did not do well. PAST SURGICAL HISTORY: Not significant. SOCIAL HISTORY: No history of smoking or alcoholism. ALLERGIES: She is allergic to AVINASH inhibitors, codeine, hydrocodone. REVIEW OF SYSTEMS: Noncontributory. MEDICATIONS: Include Tylenol, Renagel, Zofran, melatonin, magnesium oxide, levothyroxine, gabapentin, multivitamin, clopidogrel, Sensipar, carvedilol, Coreg CR 40 mg daily, aspirin, Rocaltrol or calcitriol, and allopurinol. PHYSICAL EXAMINATION: GENERAL: The patient was somewhat lethargic. VITAL SIGNS: Reveal temperature normal, pulse 76 per minute, respiratory rate was 20 per minute, blood pressure was 149/88 this morning. HEENT: Head normocephalic. Pupils PERRLA. Fundus examination not done at this time. Neck supple. JVP normal. ENT examination unremarkable. There is no evidence of lymphadenopathy, thyroid enlargement, cyanosis or clubbing. There is presence of mild anemia and pedal edema. BREASTS: Examination not done. CHEST: Normal inspection. LUNGS: Reveal occasional basal rales. CARDIAC: PMI cannot be located. Heart sounds are normal. No murmur, gallop, or rub noted. ABDOMEN: Obese. Hernial orifices normal. No guarding, rigidity, free fluid, masses, or organomegaly. Bowel sounds normal. RECTAL: Examination deferred. [employer]: Higher functions: Patient is somewhat lethargic. Cranial nerves grossly normal except for the speech. She could not get the words out. It was kind of suggestive of expressive aphasia. Motor and sensory system examination revealed definite weakness in the right upper extremity power grade 3 as compared to her normal power of grade 5. Lower extremity was also power grade 3-4 on the right side. Deep tendon reflexes are sluggish. However, plantar was extensor on the right side. Skull and spine examination normal for age. No cerebellar signs or signs of meningeal irritation. She has bilateral carotid disease, more on the right side, and gait could not be checked. CLINICAL IMPRESSION: New onset of weakness in the right upper extremity with some speech disturbance. She had a history of transient ischemic attack, history of extensive bilateral carotid disease, renal failure, hypertension, coronary artery disease. She had a coronary artery bypass graft done in the past. cc: Radu Whitehead MD
[2017-04-22] MEDS: COREG CR PO SCH (11:32)
[2017-04-22] MEDS: D5 1/2 NS + KCL 10 MEQ 1,000 ML IV SCH (11:32)
[2017-04-22] MEDS: RENAGEL PO SCH ×2 (12:38→17:58)
--- NOTE | 2017-04-22 18:03 | PROGRESS NOTE ---
DATE: 04/22/2017 SUBJECTIVE: Ms. Pate was transferred to ICU after overnight stay in the emergency room. She was given partial peritoneal dialysis. Vital signs are normal at this juncture. Her white count is 12.84. INR is 1.2. Chemistry reveals a BUN of 40, creatinine 9.7, potassium was 4.4. ProBNP was 9981. A chest x-ray revealed nonspecific findings. Stable cardiomegaly was noted. We are going to continue to watch her in ICU. cc: Radu Whitehead MD
--- NOTE | 2017-04-22 18:56 | CONSULTATION ---
DATE OF CONSULTATION: 04/22/2017 HISTORY OF PRESENT ILLNESS: Ms. Pate is 77 years old and there is question of stroke, seizure, or other neurologic event. History from her attentive son at the bedside and from review of available hospital record is that she has been complaining of feeling generally weak for the last several weeks. There has not been any clear focal neurologic feature. Sometimes, her voice has been weak, but there has not been brooke dysarthria and there has not been dysphagia or trouble chewing. There have been a few periods of time when she seemed more feeble than usual, weak all over and she seemed to have trouble finding her words on those occasions. Son present now was not present firsthand with any of these. She was admitted to the hospital 8 days ago and improved and discharged home close to baseline two days ago. Yesterday, son reports she had cataract surgery and following that, seemed slumped over in the car, poorly responsive, trouble finding her words. She was brought to the emergency room, evaluated and admitted. Son witnessed one episode recently of fixed gaze, blank stare, complete unresponsiveness with right facial droop and tongue protruded toward the right. This resolved slowly over half an hour to an hour, and she did not seem to baseline for a few hours. There has not been definite urinary incontinence with these episodes, but that is of uncertain significance in light of her renal failure and low urine output. She has not had definite focal weakness in the limbs, but she did have the facial asymmetry as reported above. There has not been tongue or lip biting. There is no previous history of clinical stroke, imaging evidence of stroke, seizure, serious head injury, other neurologic event. She does not use ethanol or illicit drugs. She has not made any recent medication changes. Her current medicine list does not include anything that likely would be associated with seizure or encephalopathy, either with intoxication or in withdrawal. Workup includes noncontrast CT of the head reported to show usual white matter changes, but nothing focal or acute. This was unchanged compared to scan done 04/14/2017. BUN and creatinine are chronically elevated, but close to her usual range. WBC count was elevated 12,840. Systolic blood pressures have ranged from 80 to 149 today. Heart rate has ranged from 70s to 80s. PHYSICAL EXAMINATION: On examination, she is awake, alert, attentive. She seemed unable to follow some commands. She did follow some simple commands inconsistently. She has some trouble with bedside language testing including repeating. She did not do well with bedside naming. Her speech is weak, feeble, a little bit dysarthric in addition to the dysphasic features. Tongue is midline right now. Facial motility is diminished on the right in an upper motor neuron pattern. Right nasolabial fold is less prominent than the left. Palate is midline. She can hear, but hearing seems impaired. She has full lateral eye movement. She seems attentive, but unable to count fingers correctly in the right visual field. She did count fingers in her left visual field. She moved her left arm and leg a little bit more purposefully than the right. Tone is slightly increased on the right. Plantar response is briskly extensor on the right and more equivocal on the left. Reflexes are trace at the ankles, 1+ at the wrists. IMPRESSION: Right hemiparesis and probable dysphasia, also possible hemianopia. This is consistent with a left hemisphere syndrome. With reported recent onset and stable course, ischemic infarction in the left hemisphere seems most likely. Initial negative CT does not exclude acute ischemic infarction. In addition, some of the reported behavior is consistent with seizure. Seizure, if present, may have been related to recent infarction. I do not have any urgent suggestion. I will order EEG. I think followup imaging will be helpful, when practical, but I do not think that will bladder changer right away. MRI would always be preferred if she can tolerate that. I think we can reassess tomorrow and make a decision about MRI versus CT versus wait another day before repeat imaging. I discussed my impression and recommendations at length with son at the bedside. Thanks for asking me to see Ms. Pate. cc: MD Radu Rose III, MD MTDD
--- NOTE | 2017-04-22 19:58 | CONSULTATION ---
DATE OF CONSULTATION: 04/22/2017 REASON FOR ADMISSION: Altered mental status with severe weakness. REASON FOR CONSULT: End-stage renal disease with assistance with medical management. REQUESTING PHYSICIAN: Dr. Whitehead. HISTORY OF PRESENT ILLNESS: Ms. Pate is a 77-year-old, white female, who is known to our outpatient services for peritoneal dialysis on a daily basis. Patient had recently been in the hospital for altered mental status and right lower extremity weakness. She was noted to have an inability to walk and subsequently had improved. She was discharged on Thursday. Our PD nurse had gone out to her home for training for the family because patient had forgotten how to do her peritoneal dialysis. After 15 minutes of being there, patient was found to have slurred speech, weakness to the right side, some facial drooping, unable to focus with a fixed stare. Her family decided to put her into the car and bring her to [facility] subsequently, because they live in the [place] and they are unable to do peritoneal dialysis at that hospital. Upon arrival, patient remained somnolent. She remains lethargic. She does open her eyes to verbal command, though she drifts immediately off. She remains nonverbal. Her son is currently at her bedside giving most recent history. Patient had a CT of the head performed while in the emergency room. This was essentially negative. PAST MEDICAL HISTORY: End-stage renal disease with peritoneal dialysis at home. She has a history of diabetes mellitus type 2, coronary artery disease, anemia of chronic disease, osteodystrophy of chronic disease. Obesity. Gout. Seasonal allergies. Reflux. FAMILY HISTORY: Noncontributory. SOCIAL HISTORY: She does live alone. She has family who are supportive to her care. Her son is present at the bedside. No alcohol, tobacco or illicit drug use. CURRENT ALLERGIES: Listed as hydrocodone. HOME MEDICATIONS: Allopurinol, aspirin, benzonatate, clonidine, vitamin D, Renvela, Zofran, omeprazole, metoprolol, metoclopramide, fluticasone, Advair and Nexium. REVIEW OF SYSTEMS: Review of systems x 10 is best obtained per patient and from previous chart. Pertinent positives listed above in the HPI. VITAL SIGNS: Temperature 97.4, blood pressure 112/62, heart rate 80, respirations 13. She is on 2 L nasal cannula. Last recorded saturation 97%. She has had 690 in, she has had 0 recorded out with need for peritoneal dialysis assist. LABS: Sodium 137, potassium 4.4, chloride 95, CO2 of 24, BUN 40, creatinine 9.7 , glucose 112. Anion gap 18, calcium 9.9, magnesium 2.1. Albumin 3.4. White count 12.84, hemoglobin 10.9, hematocrit 35.2, with a platelet count of 252. CT of the head as mentioned above was essentially negative at this time. PHYSICAL EXAMINATION: General: This is a 77-year-old, white female. She appears chronically ill. She is in no acute distress. She is mostly lethargic. Skin: Warm and dry. HEENT: Normocephalic, atraumatic. Conjunctiva is pale. She has FRITZ. Mucous membranes are dry. Neck: Supple. Trachea midline. No evidence of JVD. Cardiovascular: She is regular rate and rhythm. She has no murmur or gallop appreciated. Lungs: Clear to auscultation anteriorly. Equal excursion on O2. Abdomen: Large, round, obese. Soft, nontender. Positive bowel sounds. Peritoneal dialysis catheter remains to the right lower quadrant. This is dry and intact. No redness or drainage noted. She is now hooked up to the cycler. She is to be treated with all greens during her evening treatments over 9 hours. Genitourinary: Minimal void with assistance with peritoneal dialysis. Extremities: Patient has trace pretibial edema. Neurological: As mentioned above. ASSESSMENT AND PLAN: 1. End-stage renal disease. Patient is due for her peritoneal dialysis treatment, subsequently having missed it for [address] her on the cycler to which she is already attached. We will have this run for 9-12 hours. We will use just all greens and plan for disconnect in the a.m. leaving an indwell. 2. Electrolytes and acid-base balance. This currently remains stable. 3. Anemia. This is low, but stable. 4. Altered mental status with possible cerebrovascular accident, transient ischemic attack. This is currently being followed by primary care and Dr. Momin. I would like to thank you for allowing us to follow with this patient. Dictated by MARINA Villalobos for Stephan Palencia MD Patient seen, data reviewed, discussed with Juan A Askew on 04/22/17. I agree with the above assessment and plan of care. cc: MARINA Villalobos MD Amit V. Vora, MD MTDD
[2017-04-22] MEDS: MELATONIN PO SCH (21:01)
[2017-04-22] MEDS: NEURONTIN PO SCH (21:02)
[2017-04-23] MEDS: D5 1/2 NS + KCL 10 MEQ 1,000 ML IV SCH (02:56)
[2017-04-23 05:48] LABS: INR 1.08; PROTIME 11.4 Seconds (9.2-11.7)
[2017-04-23 05:55] LABS: BASO% 0.8 % (0.0-0.8); EOS# 0.48 X1000 (0.0-0.7); EOS% 3.9 % (0.0-10.0); HEMATOCRIT 34.9 % (37.0-47.0); HEMOGLOBIN 10.9 g/dL (12.0-16.0); IMM GRAN# 0.16 X1000 (0.0-0.04); IMM GRAN% 1.3 % (0.0-0.5); LYMPH# 2.58 X1000 (1.2-3.4); LYMPH% 21.2 % (20.5-51.1); MANUAL DIFF NEEDED? YES; MCH 30.4 PG (27-31); MCHC 31.2 g/dL (33-37); MCV 97.2 FL (81-99); MONO% 8.2 % (1.7-9.3); MPV 10.6 FL (7.4-10.4); NEUT% 64.6 % (42.2-75.2); PLT 250 X1000 (130-400); RBC 3.59 XMIL (4.2-5.4)
[2017-04-23 06:03] LABS: CALCIUM 9.7 mg/dL (8.8-10.2); POTASSIUM 4.9 mmol/L (3.5-5.1)
[2017-04-23] MEDS: SYNTHROID PO SCH (06:24)
[2017-04-23] MEDS: PATIENT'S OWN MED BOTH EYES SCH ×6 (09:00→20:48)
[2017-04-23 09:01] LABS: EOS 1 % (1-10); LYMPHS 24 % (21-51); MONO 2 % (1-9)
[2017-04-23] MEDS ORDERED: OCUFLOX 0.3% OPH SOLUTION BOTH EYES SCH (09:15)
--- NOTE | 2017-04-23 09:42 | PROGRESS NOTE ---
DATE: 04/23/2017 Ms. Pate is a little more alert, but she still has trouble talking. She has some expressive aphasia, continues to have weakness in the right upper and lower extremity. The power is about grade 3, and she keeps the right leg externally rotated. She is going to get an EEG today. Her other lab data is unremarkable and not much changed. We probably may need MRI, which can confirm the presence of stroke, but clinically she apparently has a stroke. She is on clopidogrel 75 mg daily. Overall condition is unchanged, aspirin she takes 81 mg on a daily basis. cc: Radu Whitehead MD
[2017-04-23] MEDS: COREG CR PO SCH (10:21)
[2017-04-23] MEDS: ASPIRIN PO SCH (10:21)
[2017-04-23] MEDS: SENSIPAR PO SCH (10:22)
[2017-04-23] MEDS: PLAVIX PO SCH (10:22)
[2017-04-23] MEDS: RENAGEL PO SCH ×3 (10:22→17:59)
[2017-04-23] MEDS: NEPHRO-VITE PO SCH (10:22)
[2017-04-23] MEDS: ZYLOPRIM PO SCH (10:23)
[2017-04-23] MEDS: MAG-OX PO SCH (10:23)
[2017-04-23] MEDS: LEVAQUIN PO SCH (10:23)
[2017-04-23] MEDS ORDERED: NS 0 ML ONE (11:13)
[2017-04-23] MEDS ORDERED: PRED FORTE 1% OPH SUSPENSION BOTH EYES SCH (13:00)
--- NOTE | 2017-04-23 14:29 | PROGRESS NOTE ---
DATE: 04/23/2017 TIME SEEN: 0705. SUBJECTIVE: Ms. Pate is resting quietly in bed. She does open her eyes and responds yes and no to questions. She denies pain. OBJECTIVE: Her most recent vital signs: Temperature 97.7 degrees, blood pressure 114/71, heart rate 84, respirations 23. She is currently on room air. Last recorded saturation is 100%. LABORATORY DATA: Sodium 138, potassium 4.9, chloride 96, CO2 of 23. BUN 37, creatinine 9.5, glucose 104. Her anion gap is 19. Calcium of 9.7, white count 12.17, hemoglobin 10.9, hematocrit 34.9 with a platelet count of 250,000. Her ProTime is 11.4. Her INR is 1.08. PHYSICAL EXAMINATION: General: This is a 77-year-old white female. She is currently resting in bed. She appears chronically ill though in no acute distress Skin is warm and dry. HEENT: Normocephalic, atraumatic. Conjunctivae pale. She has FRITZ. Mucous membranes are dry. Neck is supple. Trachea midline. No JVD. Cardiovascular: Regular rate and rhythm. She has is without murmur or gallop. Lungs are clear to auscultation anteriorly. Equal excursion on room air. Abdomen is soft, nontender. Positive bowel sounds. She has a peritoneal dialysis catheter that is clamped to her right lower quadrant. This is dry and intact without redness or drainage. Genitourinary not inspected. Minimal void with dialysis assist. Extremities: Patient has trace pretibial edema. Neurological: As mentioned above. ASSESSMENT AND PLAN: 1. End-stage renal disease. Patient is due for her routine peritoneal dialysis treatment per her cycler. We will place her on all yellows this evening. It is noted that patient has become severely weak in the last month and is unable to perform her peritoneal dialysis treatments at home. Family has discussed assistance to help the patient though she does live alone. Dr. Palencia will place a phone call to the family today in regards with continued further PD vs. HD treatments. I spoke with her son. She needs to change to HD. He understands. I consulted Dr. Anthony for a tunneled dialysis catheter. rg 2. Electrolytes and acid-base balance. These are stable. 3. Anemia. This is low but stable. 4. Altered mental status. Patient is at least alert to person. I would like to thank you for allowing us to follow with this patient. Dictated by MARINA Villalobos for Stephan Palencia MD Patient seen, data reviewed, discussed with Juan A Askew on 04/23/17. I agree with the above assessment and plan of care. cc: MARINA Villalobos MD Amit V. Vora, MD [facility]
[2017-04-23] MEDS: TYLENOL PO PRN (16:17)
[2017-04-23] MEDS ORDERED: KEFZOL 1 GM/D5W 1 GM/50 ML IVPB IV ONE (16:50)
--- NOTE | 2017-04-23 17:58 | PROGRESS NOTE ---
DATE: 04/23/2017 Ms. Pate is just a little bit brighter, more consistently alert, more attentive today. Still, she did not follow my request for naming, identifying son or grandson at the bedside, moving specific limbs to command. She has full lateral eye movement. Speech remains feeble and dysarthric. There is no meningismus. Her EEG showed generalized slowing and more prominent slowing in the left hemisphere consistent with her clinical syndrome, including right hemiparesis and dysphasia. I believe that she also has right hemianopia but I did not test that today. So far, imaging has not documented definite left hemisphere lesion. I have discussed with her grandson at the bedside possibility that she had some periods of transient brain ischemia responsible for some of her previous episodes versus possibility that these were related to seizure and possibility that she may have had some ischemic episodes and some seizure episodes. At this point, she seems a little bit improved and I do not think we have to do anything urgently. Repeat imaging will be helpful when she can tolerate that. Since tomorrow is Thursday, if she does not seem recovered well enough to likely tolerate MRI scanner, I would repeat her noncontrast CT. We might then consider MRI electively next week. If she does improve overnight and seems more alert and attentive and seems able to tolerate MRI scanner, we might try to get the MRI tomorrow. Thanks for asking me to see Ms. Pate. cc: MD Radu Rose III, MD MTDD
[2017-04-23] MEDS: MELATONIN PO SCH (20:48)
[2017-04-23] MEDS: NEURONTIN PO SCH (20:48)
--- NOTE | 2017-04-23 22:54 | EEG REPORT ---
DATE: 04/22/2017 TEST: EEG, #[id number]. COMMENT: This is a digitally recorded EEG done portably in the ICU on a 77-year-old patient with possible episodes of dysphasia, at least once with unresponsiveness raising question of seizure. FINDINGS: During waking, poorly sustained posterior rhythm at 7 Hz is recorded briefly with uncertain reactivity to eye opening. Background contains abundant polymorphic and rhythmic theta frequencies over the frontal and central regions symmetrically. Much of the record is recorded in drowsing and sleep with symmetric features including slowing into the delta range at highest amplitude frontally. Photic stimulation did not significantly alter the record. No definite epileptiform discharge was identified. Rhythmic theta is present across both hemispheres, more consistent on the left. INTERPRETATION: Abnormal EEG because of generalized slowing and more prominent slowing over the left hemisphere. CORRELATION: This is indicative of a diffuse encephalopathy with additional more focal disturbance of electrocortical activity in the left hemisphere consistent with her clinical syndrome. The absence of epileptiform discharges does not exclude a clinical diagnosis of seizure. cc: MD Radu Rose III, MD
[2017-04-24] MEDS: TYLENOL PO PRN ×2 (00:41→20:03)
[2017-04-24] MEDS: SYNTHROID PO SCH (06:26)
[2017-04-24] MEDS ORDERED: HEPARIN ONE ×3 (06:28→11:07)
[2017-04-24] MEDS ORDERED: XYLOCAINE-MPF 1%/EPI 1:200,000 ONE (06:28)
[2017-04-24] MEDS ORDERED: NS 250 ML ONE (06:28)
[2017-04-24] MEDS ORDERED: ZOFRAN ONE (06:43)
[2017-04-24] MEDS ORDERED: KEFZOL 1 GM/D5W 1 GM/50 ML IVPB ONE (06:51)
[2017-04-24 06:54] LABS: INR 1.07; PROTIME 11.3 Seconds (9.2-11.7)
[2017-04-24] MEDS ORDERED: TIGHT: 0.2 ML/HR MISC PRN (06:59)
[2017-04-24] MEDS ORDERED: HEPARIN IV PRN (06:59)
[2017-04-24] MEDS ORDERED: NS 2,000 ML MISC PRN (06:59)
[2017-04-24] MEDS ORDERED: VERSED ONE (07:06)
[2017-04-24] MEDS ORDERED: FENTANYL ONE (07:07)
--- NOTE | 2017-04-24 08:52 | PROGRESS NOTE ---
DATE: 04/24/2017 SUBJECTIVE: She is in the recovery room having had a tunneled dialysis catheter placed this morning by Dr. Anthony. She will arouse and look at me and attempt to follow simple commands. OBJECTIVE: Vital Signs: Blood pressure preop 138/78, heart rate 75, respirations 16, afebrile. General: She is an elderly woman, lying flat, no distress. Skin: Warm and dry. Conjunctivae are pink. Pupils are equal. Neck: Neck veins are not appreciated. Trachea is midline. Heart: Regular without gallops or murmurs. Lungs: Have equal breath sounds. No crackles or wheezes. Abdomen: Obese and soft. Bowel sounds are present. Extremities: Have trace edema. No clubbing or cyanosis. LABORATORY DATA: None for today. IMPRESSION AND PLAN: 1. End-stage kidney disease. She is going to transition over to hemodialysis for the foreseeable future following her acute neurologic event. She is not able to meet her nutritional needs, and she is also technically unable to do her peritoneal dialysis. Plan for 2 potassium bath, 1 L ultrafiltration today. 2. Electrolytes, acid base, anemia. No new data. She is not currently receiving erythropoietin following her acute neurologic event. Hemoglobin is in target. cc: MD Radu Lucas MD
[2017-04-24] MEDS ORDERED: PATIENT'S OWN MED BOTH EYES SCH (09:00)
[2017-04-24] MEDS: RENAGEL PO SCH ×3 (09:00→16:51)
[2017-04-24] MEDS: ASPIRIN PO SCH (09:41)
[2017-04-24] MEDS: PLAVIX PO SCH (09:41)
[2017-04-24] MEDS: SENSIPAR PO SCH (09:41)
[2017-04-24] MEDS: ZYLOPRIM PO SCH (09:41)
[2017-04-24] MEDS: PATIENT'S OWN MED BOTH EYES SCH ×8 (09:42→20:03)
[2017-04-24] MEDS: MAG-OX PO SCH (09:42)
[2017-04-24] MEDS: NEPHRO-VITE PO SCH (09:42)
[2017-04-24] MEDS: LEVAQUIN PO SCH (09:42)
[2017-04-24] MEDS: COREG CR PO SCH (09:43)
[2017-04-24] MEDS ORDERED: NS 2,000 ML ONE (11:07)
--- NOTE | 2017-04-24 12:21 | OPERATIVE NOTE ---
PROCEDURE DATE: 04/24/2017 PROCEDURE PERFORMED: Placement of right internal jugular vein tunneled dialysis catheter with ultrasound and fluoroscopic guidance. SURGEON: Dereje Anthony MD LITERACY COACH: Cristian Burns RN PREOPERATIVE DIAGNOSES: 1. Chronic kidney disease, stage 5. 2. Cerebrovascular accident. POSTOPERATIVE DIAGNOSES: 1. Chronic kidney disease, stage 5. 2. Cerebrovascular accident. INDICATIONS: This lady is on PD but has had a stroke and has an altered mental status. He is now been shifted to hemodialysis, at least temporarily. DESCRIPTION OF PROCEDURE: Satisfactory monitoring anesthesia care was established. IV sedation was accomplished. The right side of the neck and upper anterior chest were prepped and draped in a sterile fashion. We anesthetized the skin and the neck over the imaged internal jugular vein. We chose a 19 cm precurved catheter. We anesthetized the skin below the clavicle as well. We made a small stab incision in the neck, accessed the right internal jugular vein, and passed the guidewire into the superior vena cava under fluoroscopic guidance. We then tunneled a 19 cm precurved catheter from an infraclavicular incision to the supraclavicular incision. We then dilated the tract sequentially and then passed the dilator and introducer sheath over the guidewire. We removed the dilator and guidewire and introduced a split catheter through the sheath into the superior vena cava under fluoroscopic guidance. We then were able to aspirate and irrigate easily from each lumen and then put strong heparin, 5000 units/mL, 1.5 mL in 1 lumen and 1.6 mL in the other lumen. We secured the flange to the skin with the nylon contained within the tray. We closed the skin of the neck incision with a 4-0 Polysorb subcuticular stitch. Telfa and sterile Op-Sites were applied. She tolerated it well and was sent to the recovery room in satisfactory condition. cc: MD Dereje Lucas MD Amit V. Vora, MD
[2017-04-24] MEDS: CLINIMIX E 4.25%-5% SOLUTION 1,000 ML IV SCH (12:29)
--- NOTE | 2017-04-24 12:37 | Diag Imaging Result Doc PS360 ---
CT HEAD W/O CONTRAST - 04/24/2017 INDICATION: Right hemiparesis TECHNIQUE: A CT dose reduction protocol was used. COMPARISON: 04/21/2017 FINDINGS: There is a new area of cortical-based hypodensity at the parietal-occipital junction of the posterior left cerebral hemisphere. Otherwise stable moderately advanced periventricular white matter chronic microvascular disease. No intracranial mass or hemorrhage. The skull is intact. The sinuses, mastoids, and middle ears are clear. IMPRESSION: New, recent infarction at the posterior left cerebral hemisphere. By appearance this is at least 1-3 days old. A report was immediately called to the patient's inpatient unit. Electronically signed by Felipe Kasper 04/24/2017 12:35 PM
--- NOTE | 2017-04-24 14:16 | PROGRESS NOTE ---
DATE: 04/24/2017 Ms. Pate is not doing well. She is still very drowsy. She has a CVA affecting the left hemisphere. EEG also showed some increased slowing on the left hemisphere. She has bilateral carotid disease more on the right side. Discussed with the family about the rehab and a possibility of [facility]. She had a dialysis catheter put in today, we will discontinue her Neurontin as per family request and put her on some Clinimix starting from today. Overall prognosis is poor. Family understands that. IMPRESSION: Acute cerebrovascular accident. Patient has renal failure, hypertension, severe carotid artery disease. -2 cc: Radu Whitehead MD
--- NOTE | 2017-04-24 14:58 | PROGRESS NOTE ---
DATE: 04/24/2017 SUBJECTIVE/OBJECTIVE: Ms. Pate is a little bit more responsive, moving her left limbs more purposefully, still with definite right hemiparesis. She did not speak to me or follow my commands, but family reports she has said a few words. Extraocular movements are full. Neck is supple. IMPRESSION: 1. Series of episodes over the last few weeks which could have been transient ischemic episodes, seizure or both. 2. Presenting this time with more fixed focal deficit including right hemiparesis, dysphasia, likely right hemianopia. This is most consistent with an acute ischemic left hemisphere infarction and initial negative CT does not exclude that diagnosis. We have been planning follow-up imaging hoping that she will be alert and tolerate MRI, but, although improved, I do not think she has reached that point. Therefore, I will order repeat noncontrast CT to look for evidence of recent left hemisphere infarction and to make sure there is no bleeding or other lesion. 3. At least 1 episode seemed more definitely seizure. She has not had recurrent episodes of unconsciousness. EEG did not show definite epileptiform discharge. I think we can continue to follow conservatively and not add medicine for seizure control at this point. Thanks for asking me to see Ms. Pate. cc: MD Radu Rose III, MD MTDD
--- NOTE | 2017-04-24 16:12 | PROGRESS NOTE ---
DATE: 04/24/[address] of the head, clearly shows evidence of subacute infarction in the left hemisphere. This would account for her persistent right hemiparesis, presumed right hemianopia and dysphasia. In addition, there is evidence of possible small subcortical infarction in the right hemisphere near the frontal horn of the lateral ventricle. I reviewed the CT report and images with family. I do not think we need to make any major changes to her management. When she is medically stable, I think it would be reasonable to reconsider surgical management of her cerebrovascular problems. Thanks for allowing me to follow Ms. Pate. cc: MD Radu Rose III, MD MTDD
[2017-04-24] MEDS: MELATONIN PO SCH (20:03)
[2017-04-25] MEDS: SYNTHROID PO SCH (06:17)
[2017-04-25 06:42] LABS: MANUAL DIFF NEEDED? NO
[2017-04-25 06:54] LABS: BASO% 0.7 % (0.0-0.8); EOS# 0.18 X1000 (0.0-0.7); EOS% 1.2 % (0.0-10.0); HEMATOCRIT 38.4 % (37.0-47.0); IMM GRAN# 0.16 X1000 (0.0-0.04); IMM GRAN% 1.1 % (0.0-0.5); LYMPH# 2.61 X1000 (1.2-3.4); LYMPH% 17.3 % (20.5-51.1); MCH 30.3 PG (27-31); MCHC 31.3 g/dL (33-37); MONO# 1.41 X1000 (0.11-0.59); MONO% 9.3 % (1.7-9.3); MPV 10.6 FL (7.4-10.4); NEUT% 70.4 % (42.2-75.2); PLT 244 X1000 (130-400); RBC 3.96 XMIL (4.2-5.4)
[2017-04-25 06:57] LABS: INR 1.13
[2017-04-25 07:18] LABS: CALCIUM 10.2 mg/dL (8.8-10.2)
--- NOTE | 2017-04-25 07:55 | Diag Imaging Result Doc PS360 ---
CHEST-PORTABLE - 04/25/2017 INDICATION: Shortness of breath TECHNIQUE: COMPARISON: 04/21/2017 FINDINGS: There is a new right-sided dialysis catheter in good position. Stable severely low lung volumes. Stable cardiomegaly. No definite infiltrates. No pneumothorax or large effusion. IMPRESSION: New dialysis catheter but otherwise no change from prior. No complication. Electronically signed by Felipe Kasper 04/25/2017 7:52 AM
[2017-04-25] MEDS ORDERED: TIGHT: 0.2 ML/HR MISC PRN (08:20)
[2017-04-25] MEDS ORDERED: HEPARIN IV PRN (08:20)
[2017-04-25] MEDS ORDERED: NS 2,000 ML MISC PRN (08:20)
[2017-04-25] MEDS: MAG-OX PO SCH (08:54)
[2017-04-25] MEDS: COREG CR PO SCH (08:55)
[2017-04-25] MEDS: NEPHRO-VITE PO SCH (08:55)
[2017-04-25] MEDS: ASPIRIN PO SCH (08:55)
[2017-04-25] MEDS: SENSIPAR PO SCH (08:55)
[2017-04-25] MEDS: ROCALTROL PO SCH (08:55)
[2017-04-25] MEDS: PLAVIX PO SCH (08:55)
[2017-04-25] MEDS: LEVAQUIN PO SCH (08:55)
[2017-04-25] MEDS: ZYLOPRIM PO SCH (08:55)
[2017-04-25] MEDS: PATIENT'S OWN MED BOTH EYES SCH ×7 (08:56→22:07)
[2017-04-25] MEDS: RENAGEL PO SCH ×3 (08:57→16:21)
[2017-04-25] MEDS ORDERED: HEPARIN ONE (10:47)
[2017-04-25] MEDS ORDERED: NS 2,000 ML ONE (10:47)
--- NOTE | 2017-04-25 12:08 | PROGRESS NOTE ---
DATE: 04/25/2017 SUBJECTIVE: She will open her eyes but she is still nonverbal. She has not moved her right arm. OBJECTIVE: Vital Signs: Blood pressure 159/70, heart rate 85, respirations 15, afebrile. General: She is in no acute distress. Skin: Warm and dry with bruising on the right upper arm. HEENT: Conjunctivae are pink. Neck: Neck veins are not appreciated. Heart: Regular without gallops. Lungs: Have equal breath sounds. No crackles or wheezes. Abdomen: Soft, nontender. Bowel sounds present. Extremities: Have no edema with the exception that the right arm is diffusely swollen. No clubbing or cyanosis. LABORATORY DATA: Sodium 137, potassium 5.0, chloride 92, bicarbonate 23, BUN 29, creatinine 6.9. IMPRESSIONS: 1. End-stage kidney disease. She will have hemodialysis today. 2. NPO. Will add IDPN. 3. Electrolytes/acid base, in target. 4. Anemia, in target. 5. Swollen right arm. Likely multifactorial. cc: MD Radu Lucas MD
[2017-04-25] MEDS: D50W 250 ML, AMINOSYN 15% 500 ML, LIPOSYN 20% 250 ML IV SCH ×3 (12:43)
--- NOTE | 2017-04-25 14:53 | PROGRESS NOTE ---
DATE: 04/25/2017 SUBJECTIVE: This is a progress note for Dr. Whitehead. A 77-year-old white female who was admitted to the hospital with end-stage kidney disease on dialysis, possible pneumonia, and stroke, weakness on the left side. The patient is noncommunicative, nonverbal, awake, and the family is there at the bedside assisting with breakfast. She is not able to eat very well. She is spitting out. She had a dialysis yesterday. REVIEW OF SYSTEMS: Unable to obtain. The patient is nonverbal. As per the caregiver, no significant complaints other than not eating well. The patient had a chest x-ray done this morning, and she wants to know the results. PAST MEDICAL HISTORY: Reviewed. PAST SURGICAL HISTORY: Reviewed. MEDICATIONS: Reviewed. OBJECTIVE: Vital Signs: On examination, she is afebrile. Pulse is 80, blood pressure 112/92, and on 3 liters nasal cannula 92%. HEENT and Neck: No facial defects noted. Spitting the food. The neck is supple. Chest: She has a dialysis catheter on the right side of the chest noted. Bilateral air entry. Cardiac: Heart sounds are regular. Abdomen: Belly is soft, nontender. Good bowel sounds. Neurologic: Weakness on the right side. Right hemiparesis. INVESTIGATIONS: CBC: White cell count 15, hematocrit 38, platelets 244,000. PT 12, INR 1.1. SMA-7: Sodium 137, potassium 5, chloride 92, BUN 29, creatinine 6.9, glucose 126. A proBNP of 19,000. Chest x-ray was stable. Dialysis catheter was noted on the right side. No infiltrates. Low lung volumes. ASSESSMENT AND PLAN: 1. A 77-year-old white female basically admitted to the hospital with weakness and a right hemiparesis with cerebrovascular accident on the left side. Seen by Dr. Momin. An EEG abnormal slowing in the left hemisphere. Continue the physical therapy. Evaluation of the stroke as per Dr. Whitehead. 2. End-stage kidney disease on hemodialysis as per Dr. Palencia. 3. The patient will be high risk for aspiration. Discussed with the family feeds as per speech therapy evaluation. 4. History of gout on Zyloprim 100 mg daily. 5. End-stage kidney disease on Rocaltrol 0.5 mcg as directed. 6. Nutrition. Intravenous ProcalAmine 40 mL/hour. 7. Hypothyroidism on Synthroid. 8. Cerebrovascular accident. Continue on aspirin and Plavix and physical therapy, out of the bed. LEVEL OF DOCUMENTATION: 35 minutes. cc: MD Radu Daugherty MD
[2017-04-25] MEDS: TYLENOL PO PRN (15:57)
[2017-04-25] MEDS: CLINIMIX E 4.25%-5% SOLUTION 1,000 ML IV SCH (15:58)
[2017-04-25] MEDS: MELATONIN PO SCH (22:08)
[2017-04-26] MEDS: SYNTHROID PO SCH (06:46)
[2017-04-26 08:29] LABS: INR 1.13
[2017-04-26] MEDS: RENAGEL PO SCH ×3 (10:34→18:45)
[2017-04-26] MEDS: ASPIRIN PO SCH (10:35)
[2017-04-26] MEDS: PATIENT'S OWN MED BOTH EYES SCH ×8 (10:35→21:04)
[2017-04-26] MEDS: COREG CR PO SCH (10:36)
[2017-04-26] MEDS: ZYLOPRIM PO SCH (10:37)
[2017-04-26] MEDS: PLAVIX PO SCH (10:37)
[2017-04-26] MEDS: SENSIPAR PO SCH (10:37)
[2017-04-26] MEDS: NEPHRO-VITE PO SCH (10:38)
[2017-04-26] MEDS: MAG-OX PO SCH (10:38)
[2017-04-26] MEDS: LEVAQUIN PO SCH (10:39)
[2017-04-26] MEDS ORDERED: STERILE WATER INJ. INJ PRN (13:30)
[2017-04-26] MEDS ORDERED: GEODON IM PRN (13:30)
--- NOTE | 2017-04-26 15:03 | PROGRESS NOTE ---
DATE: 04/26/2017 SUBJECT: 1. Patient is here for stroke and chronic kidney disease for the last 24 hours. IV access is problematic. 2. She is not tolerating the diet as well as the pills. She has a trouble swallowing. She is also extremely restless at the nighttime. The grandson was at the bedside. The patient was resting this morning. OBJECTIVE: Vital signs: On exam temperature is 97 degrees, pulse is 80, respirations 20, blood pressure is 140/79, 3 L nasal cannula. General: Patient is resting. Chest: Is clear. Heart: Sounds are regular. Dialysis catheter on the right side present. Neuro: No change in neurological exam since yesterday. LAB: PT 12, INR 1.13. ASSESSMENT AND PLAN: 1. End-stage kidney disease on dialysis as per Dr. Palencia. 2. Cerebrovascular accident with right-sided weakness associated with dysphagia. Hold NPO and plan is speech therapy evaluation in the morning. 3. Agitation at bedtime, will give Geodon as needed. LEVEL OF DOCUMENTATION: 25 minutes. cc: MD Radu Daugherty MD
[2017-04-26] MEDS: CLINIMIX E 4.25%-5% SOLUTION 1,000 ML IV SCH (15:11)
[2017-04-26] MEDS ORDERED: GEODON PO SCH (21:00)
[2017-04-26] MEDS: MELATONIN PO SCH (21:04)
[2017-04-27] MEDS: SYNTHROID PO SCH ×2 (07:01→07:04)
[2017-04-27] MEDS: ZYLOPRIM PO SCH (08:58)
[2017-04-27] MEDS: RENAGEL PO SCH ×2 (08:58→17:57)
[2017-04-27] MEDS: ASPIRIN PO SCH (08:58)
[2017-04-27] MEDS: PLAVIX PO SCH (08:59)
[2017-04-27] MEDS: SENSIPAR PO SCH (08:59)
[2017-04-27] MEDS: PATIENT'S OWN MED BOTH EYES SCH ×6 (09:00→20:54)
[2017-04-27] MEDS: NEPHRO-VITE PO SCH (09:00)
[2017-04-27] MEDS: MAG-OX PO SCH (09:02)
[2017-04-27] MEDS: COREG CR PO SCH (09:02)
[2017-04-27] MEDS: LEVAQUIN PO SCH (09:02)
--- NOTE | 2017-04-27 09:07 | PROGRESS NOTE ---
DATE: 04/27/2017 Ms. Pate is in about the same general condition. She opens her eyes at times. Does not move the right extremity much. Family has indicated a desire to transfer her to [facility]. However, they have also desire to put a stomach tube in as she is not eating. We will continue with the current management. I will talk to the [employer] about the PEG tube. I will get a consultation with [facility]. -6 cc: Radu Whitehead MD
--- NOTE | 2017-04-27 11:51 | PROGRESS NOTE ---
DATE: 04/27/2017 SUBJECTIVE: Patient is resting in bed. She opens her eyes but does not move her extremities for me. OBJECTIVE: Vital signs: Temperature 98.1 degrees, pulse 97, respiratory rate 17, blood pressure 107/68. Intake and output have not been measured. General: This is an elderly female, resting in bed. She is nonverbal, minimally responsive. HEENT: Normocephalic, atraumatic. Oral mucosa is moist. Neck: Supple. Trachea midline. No JVD. Cardiovascular: Regular rate and rhythm. No murmur or gallop. Pulmonary: Equal excursion. She is clear bilaterally. Abdomen: Soft. Positive bowel sounds. : Not inspected. Extremities: The right arm remains mildly swollen. She has some ecchymoses noted. No pretibial edema. Integumentary: Skin is warm and dry otherwise. LABORATORY DATA: No labs today. ASSESSMENT AND PLAN: 1. End-stage renal disease management. She has a Thursday, , Thursday schedule. We will plan to dialyze her tomorrow. 2. Nutritional status. We are continuing IDPN while on dialysis. We understand that primary and surgery are going to talk to family today about possible PEG tube for additional nutrition. We will defer to them. 3. Electrolytes, acid-base balance, anemia. I have no labs today. We will check those in the morning prior to dialysis. 4. Disposition. The patient will likely go to rehab or longterm facility after discharge. Dictated by MARINA Shepard for Stephan Palencia MD Patient seen, data reviewed, discussed with Elisa Upton on 04/27/17. I agree with the above assessment and plan of care. cc: MD Radu Lucas MD [facility]
[2017-04-27 11:57] LABS: HEPATITIS PROFILE ACUTE SEE COMMENTS
--- NOTE | 2017-04-27 15:05 | PROGRESS NOTE ---
DATE: 04/27/2017 Ms. Pate looks about the same clinically. I do not see any major clinical changes over the weekend. I discussed at some length with daughter at the bedside uncertain neurologic prognosis with limiting factors including age, significant medical illness, lack of major recovery to this point. I do not know if her initial episodes were ischemic, seizure or both, as discussed before. I do not have any new suggestion today. Thanks for asking me to see Ms. Pate. cc: MD Radu Rose III, MD
[2017-04-27] MEDS: CLINIMIX E 4.25%-5% SOLUTION 1,000 ML IV SCH (17:57)
[2017-04-27] MEDS: MELATONIN PO SCH (20:54)
[2017-04-28] MEDS: SYNTHROID PO SCH (06:35)
[2017-04-28] MEDS ORDERED: NS 2,000 ML MISC PRN (07:01)
[2017-04-28] MEDS ORDERED: TIGHT: 0.2 ML/HR MISC PRN (07:01)
[2017-04-28] MEDS ORDERED: HEPARIN IV PRN (07:01)
[2017-04-28] MEDS ORDERED: NS 2,000 ML ONE (07:04)
[2017-04-28] MEDS ORDERED: HEPARIN ONE (07:04)
[2017-04-28] MEDS: RENAGEL PO SCH ×3 (08:35→18:41)
--- NOTE | 2017-04-28 09:21 | PROGRESS NOTE ---
DATE: 04/28/2017 Ms. Pate is still drowsy. She has right-sided weakness. Physically, she is in about the same general condition. She is trying to swallow. Hepatitis profile is negative. Recently, she had a cataract surgery in the right eye and had some abrasion, and she has contact lens in the right eye. We need an ophthalmology consult to remove that. She was operated on by Dr. Muir in [place], [place]. We are going to try to get a consult with [facility]. However, they may not accept her. In that case, we will get her to a regular intermediate. cc: Radu Whitehead MD
[2017-04-28] MEDS: D50W 250 ML, AMINOSYN 15% 500 ML, LIPOSYN 20% 250 ML IV SCH ×3 (10:05)
[2017-04-28] MEDS: NEPHRO-VITE PO SCH (13:58)
[2017-04-28] MEDS: PATIENT'S OWN MED BOTH EYES SCH ×11 (14:16→21:28)
--- NOTE | 2017-04-28 14:42 | PROGRESS NOTE ---
DATE: 04/28/2017 SUBJECTIVE: Patient resting in bed. She opens her eyes and makes eye contact. She does move her left extremities but does not verbalize and does not follow commands for examiner. OBJECTIVE: Vital Signs: Temperature 96.7 degrees, pulse 81, respiratory rate 16 , blood pressure 148/57. Intake and output have not been measured. General: This is a chronically ill-appearing, elderly female, resting in bed. Nonverbal. HEENT: Normocephalic, atraumatic. Her oral mucosa is moist. Neck supple. Trachea midline. No JVD. Cardiovascular: Regular rate and rhythm without murmur or gallop. Pulmonary: Equal excursion. Clear bilaterally. Abdomen soft with positive bowel sounds. : Not inspected. Extremities: Right arm with edema. She is moving her left extremities, both upper and lower. Integumentary: Skin is warm and dry. LABORATORY DATA: WBC of 15.0, hemoglobin 12.0, sodium 137, potassium 5.0. CO2 of 23. Creatinine 6.9. ASSESSMENT AND PLAN: 1. End-stage renal disease management. Today is her routine dialysis day. She will be on a 2 K bath/ultrafiltration to dry weight/4-hour treatment. 2. Nutritional status. Patient underwent evaluation with speech therapy yesterday. It appears that the plan is to attempt to modify positioning oral intake to see if they can avoid having to place a PEG. We will continue intradialytic parenteral nutrition while on dialysis. 3. Electrolytes, acid-base balance, anemia. See #1 for plan. Dictated by MARINA Shepard for Stephan Palencia MD Patient seen, data reviewed, discussed with Elisa Upton on 04/28/17. I agree with the above assessment and plan of care. cc: MD Radu Lucas MD MTDD
[2017-04-28] MEDS: SENSIPAR PO SCH (16:01)
[2017-04-28] MEDS: ASPIRIN PO SCH (16:01)
[2017-04-28] MEDS: PLAVIX PO SCH (16:01)
[2017-04-28] MEDS: MAG-OX PO SCH (16:02)
[2017-04-28] MEDS: LEVAQUIN PO SCH (16:02)
[2017-04-28] MEDS: TYLENOL PR PRN (16:30)
[2017-04-28] MEDS: ZYLOPRIM PO SCH (16:40)
[2017-04-28] MEDS: ROCALTROL PO SCH (16:55)
[2017-04-28] MEDS: CLINIMIX E 4.25%-5% SOLUTION 1,000 ML IV SCH (17:05)
[2017-04-28] MEDS: COREG CR PO SCH (19:09)
[2017-04-28] MEDS: MELATONIN PO SCH (21:24)
[2017-04-29] MEDS: SYNTHROID PO SCH (06:09)
[2017-04-29] MEDS: NEPHRO-VITE PO SCH (09:53)
[2017-04-29] MEDS: COREG CR PO SCH (09:53)
[2017-04-29] MEDS: SENSIPAR PO SCH (09:53)
[2017-04-29] MEDS: PLAVIX PO SCH (09:53)
[2017-04-29] MEDS: RENAGEL PO SCH ×4 (09:54→18:54)
[2017-04-29] MEDS: ASPIRIN PO SCH (09:54)
[2017-04-29] MEDS: ZYLOPRIM PO SCH (09:54)
[2017-04-29] MEDS: LEVAQUIN PO SCH (09:54)
[2017-04-29] MEDS: MAG-OX PO SCH (09:54)
[2017-04-29] MEDS: PATIENT'S OWN MED BOTH EYES SCH ×6 (09:55→19:06)
--- NOTE | 2017-04-29 10:10 | PROGRESS NOTE ---
DATE: 04/29/2017 SUBJECTIVE: Ms. Pate is getting her dialysis and, every time she gets dialysis, she gets amino acids, as well as lipozene IV. Otherwise, she is taking by mouth which is very inadequate. She also has trouble swallowing medications. The speech therapy did not find much trouble with swallowing mechanism; however, on account of her drowsy state, it is very difficult for her to swallow and keep enough awake to eat. I personally feel like a PEG tube is in order. I discussed this with Dr. Arthur, and we will proceed with it if the family agrees. I am trying to talk to the family members also. -3 cc: Radu Whitehead MD
--- NOTE | 2017-04-29 11:13 | PROGRESS NOTE ---
DATE: 04/29/2017 SUBJECTIVE: Patient currently sitting up in bed. She is attempting to eat some applesauce with assistance from the nurse. She will make eye contact. She becomes agitated to tactile stimuli to her left lower extremity. OBJECTIVE: Vital Signs: Temperature 98.6 degrees, pulse 85, respiratory rate 15, blood pressure 140/73. Intake 120 mL. Output 2 L. OBJECTIVE: General: This is a elderly female, sitting up in bed. She is chronically ill- appearing. HEENT: Normocephalic, atraumatic. She continues with some facial droop to the right. Neck: Supple. No JVD. Cardiovascular: Regular rate and rhythm. No murmur. No gallop. Pulmonary: Equal excursion. She is clear bilaterally. Abdomen: Soft, with positive bowel sounds. : Not inspected. Extremities: Continues with some improvement to the edema to the right arm. Does move the left upper and lower extremities. Integumentary: Skin is warm and dry. LABORATORY DATA: No labs today. ASSESSMENT AND PLAN: 1. End-stage renal disease management. Today we will dialyze her on a Thursday, , Thursday schedule. Plan to dialyze in the morning. Check labs prior to. 2. Nutritional status. Primary has spoken with the family, and further decisions after evaluation with speech therapy and attempts to reintroduce oral intake overnight yesterday resulted with a decision she will likely need a PEG. If this happens, we will try to dialyze her after a procedure. Continue ID PN while on dialysis. Dictated by MARINA Shepard for Stephan Palencia MD Patient seen, data reviewed, discussed with Elisa Upton on 04/29/17. I agree with the above assessment and plan of care. cc: MD Radu Lucas MD MTDD
[2017-04-29] MEDS ORDERED: PATIENT'S OWN MED RIGHT EYE SCH (13:59)
[2017-04-29] MEDS: TYLENOL PR PRN (14:11)
[2017-04-29] MEDS: CLINIMIX E 4.25%-5% SOLUTION 1,000 ML IV SCH (15:16)
[2017-04-29] MEDS: OCUFLOX 0.3% OPH SOLUTION RIGHT EYE SCH ×2 (18:55→21:00)
[2017-04-29] MEDS: PATIENT'S OWN MED RIGHT EYE SCH ×2 (18:56→21:00)
[2017-04-30] MEDS: MELATONIN PO SCH (03:24)
[2017-04-30] MEDS ORDERED: HEPARIN IV PRN (07:05)
[2017-04-30] MEDS ORDERED: TIGHT: 0.2 ML/HR MISC PRN (07:05)
[2017-04-30] MEDS ORDERED: NS 2,000 ML MISC PRN (07:05)
[2017-04-30] MEDS: SYNTHROID PO SCH (07:28)
[2017-04-30] MEDS: TYLENOL PR PRN ×2 (07:43→14:53)
[2017-04-30] MEDS: RENAGEL PO SCH ×3 (09:03→16:04)
[2017-04-30] MEDS: ASPIRIN PO SCH (09:08)
[2017-04-30] MEDS: COREG CR PO SCH (09:08)
[2017-04-30] MEDS: MAG-OX PO SCH (09:09)
[2017-04-30] MEDS: NEPHRO-VITE PO SCH (09:09)
[2017-04-30] MEDS: LEVAQUIN PO SCH (09:09)
[2017-04-30] MEDS: PATIENT'S OWN MED RIGHT EYE SCH ×4 (09:10→16:05)
[2017-04-30] MEDS: OCUFLOX 0.3% OPH SOLUTION RIGHT EYE SCH ×3 (09:10→16:05)
[2017-04-30] MEDS: PLAVIX PO SCH (09:10)
[2017-04-30] MEDS: ZYLOPRIM PO SCH (09:11)
[2017-04-30] MEDS: SENSIPAR PO SCH (09:11)
[2017-04-30] MEDS ORDERED: HEPARIN ONE (09:58)
[2017-04-30] MEDS ORDERED: NS 2,000 ML ONE (09:58)
--- NOTE | 2017-04-30 10:17 | PROGRESS NOTE ---
DATE: 04/30/2017 SUBJECTIVE: No changes today. OBJECTIVE: Vital Signs: Blood pressure 125/61, heart rate 78, respirations 16, afebrile. General: No acute distress. Skin: Warm and dry. HEENT: Oropharynx is moist. Pupils are equal. Conjunctivae are pink. Heart: Regular. Lungs: Equal. No crackles. Abdomen: Obese and soft. Bowel sounds present. Extremities: Have 1+ edema. No clubbing or cyanosis. LABORATORY DATA: None today. We will collect during dialysis today. IMPRESSION: End-stage kidney disease. Hemodialysis today. I had a conversation with her daughter today about consideration of withdrawal of care. She has made essentially no recovery since her stroke and consequently she will be full care, requiring transport by ambulance back and forth from dialysis and will require hemodialysis from now on. None of these things are things she would be willing to accept based on my previous conversations with her. I will talk to her son today as well. cc: MD Radu Lucas MD
--- NOTE | 2017-04-30 10:26 | Diag Imaging Result Doc PS360 ---
EXAM: CHEST-PORTABLE INDICATION: poss aspiration TECHNIQUE: One view COMPARISON: 04/25/2017 FINDINGS: The right Vas-Cath is in stable position. The lung volumes remain low. No new consolidation is appreciated. Cardiac silhouette is stable. IMPRESSION: Stable chest. Electronically signed by Matthew Salvador 04/30/2017 10:24 AM
--- NOTE | 2017-04-30 10:44 | PROGRESS NOTE ---
DATE: 04/30/2017 SUBJECTIVE: Ms. Pate is doing about the same. She may be a little more alert. However, she continues to choke. ASSESSMENT AND PLAN: I discussed with Dr. Arthur as the family has signed the consent for a PEG tube. Dr. Arthur is going to do the PEG tube placement tomorrow. We will try to do her other lab work for the morning. -8 cc: Radu Whitehead MD
[2017-04-30 11:00] LABS: HEMATOCRIT 37.3 % (37.0-47.0); HEMOGLOBIN 11.7 g/dL (12.0-16.0); MCH 30.1 PG (27-31); MCHC 31.4 g/dL (33-37); MCV 95.9 FL (81-99); MPV 11.4 FL (7.4-10.4); RBC 3.89 XMIL (4.2-5.4)
[2017-04-30] MEDS ORDERED: D50W 250 ML, AMINOSYN 10% 500 ML, LIPOSYN 20% 250 ML IV SCH ×3 (11:06)
[2017-04-30 11:41] LABS: ALBUMIN 3.5 g/dL (3.5-5.0); CALCIUM 10.1 mg/dL (8.8-10.2); POTASSIUM 5.6 mmol/L (3.5-5.1)
[2017-05-01] MEDS: MELATONIN PO SCH (00:59)
[2017-05-01] MEDS: PATIENT'S OWN MED RIGHT EYE SCH ×4 (01:00→15:33)
[2017-05-01] MEDS: OCUFLOX 0.3% OPH SOLUTION RIGHT EYE SCH ×3 (01:00→15:32)
[2017-05-01] MEDS: SYNTHROID PO SCH (06:11)
[2017-05-01 07:10] LABS: BASO% 0.3 % (0.0-0.8); EOS# 0.02 X1000 (0.0-0.7); EOS% 0.1 % (0.0-10.0); HEMATOCRIT 41.8 % (37.0-47.0); HEMOGLOBIN 13.1 g/dL (12.0-16.0); IMM GRAN# 0.34 X1000 (0.0-0.04); IMM GRAN% 1.6 % (0.0-0.5); LYMPH# 2.59 X1000 (1.2-3.4); LYMPH% 12.4 % (20.5-51.1); MANUAL DIFF NEEDED? YES; MCH 29.7 PG (27-31); MCHC 31.3 g/dL (33-37); MCV 94.8 FL (81-99); MONO# 2.16 X1000 (0.11-0.59); MONO% 10.3 % (1.7-9.3); MPV 11.8 FL (7.4-10.4); NEUT% 75.3 % (42.2-75.2); PLT 222 X1000 (130-400); RBC 4.41 XMIL (4.2-5.4)
--- NOTE | 2017-05-01 07:14 | Diag Imaging Result Doc PS360 ---
EXAM: CHEST-PORTABLE HISTORY: follow up TECHNIQUE: AP portable erect at 0550 COMMENT: There is a double-lumen internal jugular catheter on the right with its tip in the superior vena cava. Lungs are slightly clearer than on the previous study of 04/30/2017. IMPRESSION: No evidence of acute disease. Electronically signed by Aldo Ortiz 05/01/2017 7:11 AM
[2017-05-01 07:21] LABS: LYMPHS 8 % (21-51); MONO 11 % (1-9)
[2017-05-01 07:29] LABS: CALCIUM 11.3 mg/dL (8.8-10.2); POTASSIUM 5.8 mmol/L (3.5-5.1)
[2017-05-01 08:07] VITALS: BP 112/80
[2017-05-01] MEDS: TYLENOL PR PRN ×2 (08:12→14:45)
[2017-05-01] MEDS: ASPIRIN PO SCH (08:17)
[2017-05-01] MEDS: COREG CR PO SCH (08:17)
[2017-05-01] MEDS: RENAGEL PO SCH ×2 (08:17→15:32)
[2017-05-01] MEDS: LEVAQUIN PO SCH (08:18)
[2017-05-01] MEDS: NEPHRO-VITE PO SCH (08:18)
[2017-05-01] MEDS: MAG-OX PO SCH (08:18)
[2017-05-01] MEDS: PLAVIX PO SCH (08:20)
[2017-05-01] MEDS: ZYLOPRIM PO SCH (08:21)
[2017-05-01] MEDS: SENSIPAR PO SCH (08:21)
--- NOTE | 2017-05-01 10:36 | PROGRESS NOTE ---
DATE: 05/01/2017 SUBJECTIVE: She was hypersomnolent and unable to arouse for me today. OBJECTIVE: Vital Signs: Blood pressure 112/80, heart rate 99, respirations 16, afebrile. Generally: She is in no acute distress. Again somnolent. Skin: Warm and dry. Conjunctivae are pink. Neck: Neck veins are not visible. Heart: Regular. Lungs: Equal, shallow, no crackles. Abdomen: Soft, nontender. Bowel sounds present. Extremities: Minimal edema. IMPRESSION: Status post cerebrovascular accident without recovery. I had a discussion with multiple family members yesterday and they have reached a decision to forego placement of feeding tube and to go home with hospice. I have reassured them in their decision. I will continue to see her while she is in the hospital and provide support. cc: MD Radu Lucas MD
--- NOTE | 2017-05-01 10:49 | PROGRESS NOTE ---
DATE: 05/01/2017 SUBJECTIVE: Family of Ms. Pate decided that they do not want PEG tube. They do not want anything else done. They want to go for hospice and will send her with [facility] hospice. -5 cc: Radu Whitehead MD
--- NOTE | 2017-05-01 11:37 | DISCHARGE SUMMARY ---
ADMISSION DATE: 04/21/2017 DISCHARGE DATE: 05/01/2017 HISTORY: Ms. Pate, who is a 77-year-old white female, a known case of renal failure, stroke affecting the right side of the body. She has slowing of the brainwave activity on the left side on EEG. CT scan, however, did not show she has bilateral severe carotid disease more on the right side. IMAGING: Chest x-ray was negative. CBC revealed mild anemia related to renal disease. INR was 1.13, BUN was 40, creatinine was 9.7. Peritoneal fluid revealed 41 WBCs with tiny polynuclear cells an 80% mononuclear monocytes. Hepatitis panel was negative. COURSE IN THE HOSPITAL: Ms. Pate had gone home today before and she came back with further worsening of her symptoms and she definitely has a CVA affecting the right side of the body. Dr. Momin was consulted . He agreed with a diagnosis of CVA. She did not improve in spite of physical therapy and other measures. Dr. Palencia was consulted who initially continue the peritoneal dialysis; however, decided that with the stroke, she needs the hemodialysis and Dr. Anthony had to put the dialysis catheter and she continued with hemodialysis. The family wanted me to consult for PEG tube placement; however, they finally decided that they do not want to do anything and they wanted to go for hospice. We are going to send her with [facility] in [place]. FINAL DIAGNOSES: 1. Cerebrovascular accident with left-sided cerebral episode. 2. Severe renal failure. 3. Mild dysphagia. 4. Anemia related to renal failure. 5. Severe hypertension 6. Patient opens her eyes but does not take the feeding adequately and cannot swallow the medications properly. 7. We will discharge her today to hospice with [facility]. cc: Radu Whitehead MD
== END 2017-05-01 17:09 | disposition hospice, home (50) ==
LOC: EDIPHOLD 19:47 → ICU 04-22 11:04 → 3N 04-23 17:08
PROVIDERS: ADMIT Internal Medicine; ATTEND Internal Medicine